=== PATIENT | female | born 1955 | race African-American/Black ===

== ENCOUNTER 2016-07-22 16:06 | Emergency (ER) | payer MEDICARE, MEDICAID ==
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
[2016-07-22] MEDS ORDERED: KETOROLAC TROMETHAMINE 60 MG/2 ML SDV IM ONE (18:08)
--- NOTE | 2016-07-22 18:13 | ER Document Report ---
ED General - General Chief Complaint: Ankle Pain Stated Complaint: ANKLE PAIN TRAVEL OUTSIDE OF THE [place] IN LAST 30 DAYS: No - HPI Onset: Just prior to arrival Onset/Duration: Sudden - This 61-year-old female who is currently under the care of an orthopedist for an ankle fracture who fell sustaining pain to the mid tibia region - Related Data Allergies/Adverse Reactions: codeine Allergy (Verified 07/22/16 16:54) morphine Allergy (Verified 07/22/16 16:54) Sulfa (Sulfonamide Antibiotics) Allergy (Verified 07/22/16 16:54) Past Medical History - General Information source: Patient - Social History Smoking Status: Never Smoker Chew tobacco use (# tins/day): No Frequency of alcohol use: None Drug Abuse: None Family History: None Patient has suicidal ideation: No Patient has homicidal ideation: No Renal/ Medical History: Denies: Hx Peritoneal Dialysis Review of Systems - Review of Systems Constitutional: No symptoms reported EENT: No symptoms reported Cardiovascular: No symptoms reported Respiratory: No symptoms reported Gastrointestinal: No symptoms reported Genitourinary: No symptoms reported Female Genitourinary: No symptoms reported Musculoskeletal: No symptoms reported Skin: No symptoms reported Hematologic/Lymphatic: No symptoms reported Neurological/Psychological: No symptoms reported Physical Exam - Vital signs Vitals: Temp Pulse Resp BP Pulse Ox 98.2 F 95 16 127/80 H 100 07/22/16 16:54 07/22/16 16:54 07/22/16 16:54 07/22/16 16:54 07/22/16 16:54 Interpretation: Normal - General General appearance: Appears well, Alert - HEENT Head: Normocephalic, Atraumatic Eyes: Normal Pupils: PERRL - Respiratory Respiratory status: No respiratory distress Chest status: Nontender Breath sounds: Normal Chest palpation: Normal - Cardiovascular Rhythm: Regular Heart sounds: Normal auscultation Murmur: No - Abdominal Inspection: Normal Distension: No distension Bowel sounds: Normal Tenderness: Nontender Organomegaly: No organomegaly - Back Back: Normal, Nontender - Extremities General upper extremity: Normal inspection, Nontender, Normal color, Normal ROM , Normal temperature General lower extremity: Normal inspection, Nontender, Normal color, Normal ROM , Normal temperature, Normal weight bearing. No: Shaun's sign Calf: Other - Prior splint in place to right lower extremity pain is underneath that affected area there is no bleeding - Neurological Neuro grossly intact: Yes Cognition: Normal Orientation: AAOx4 [place] Coma Scale Eye Opening: Spontaneous Alex Coma Scale Verbal: Oriented Alex Coma Scale Motor: Obeys Commands [place] Coma Scale Total: 15 Speech: Normal Motor strength normal: LUE, RUE, LLE, RLE Sensory: Normal - Psychological Associated symptoms: Normal affect, Normal mood - Skin Skin Temperature: Warm Skin Moisture: Dry Skin Color: Normal Course - Vital Signs Vital signs: Temp Pulse Resp BP Pulse Ox 98.2 F 95 16 127/80 H 100 07/22/16 16:54 07/22/16 16:54 07/22/16 16:54 07/22/16 16:54 07/22/16 16:54 - Diagnostic Test Radiology reviewed: Reports reviewed Discharge - Discharge Clinical Impression: Right leg pain Disposition: HOME, SELF-CARE Prescriptions: Hydrocodone/Acetaminophen [Sullivan 5-325 Tablet] 1 each PO Q4 PRN #20 tablet PRN Reason:
[2016-07-22 18:21] VITALS: BP 133/80
== END 2016-07-22 18:43 | disposition home or self-care (01) ==
LOC: ER 16:06
DX: M25.579 Pain in unspecified ankle and joints of unspecified foot (principal); S82.899D Other fracture of unspecified lower leg, subsequent encounter for closed fracture with routine healing; X58.XXXD Exposure to other specified factors, subsequent encounter
CPT/HCPCS: 99283; 96372; 73610; J1885

== ENCOUNTER 2016-09-20 06:12 | Emergency (ER) | payer MEDICARE, MEDICAID ==
--- NOTE | 2016-09-20 06:37 | ER Document Report ---
ED Medical Screen (RME) - General Chief Complaint: Fall Stated Complaint: FALL/BACK Notes: Patient is a 61-year-old female that comes emergency department by EMS on C- spine and backboard for chief complaint of fall. She states she fell out of her bed when she was reaching for a phone cord, states she landed on her back, states she hit her head and states that she passed out and then awoke on the floor after a brief period. She states she hurts in her neck, mid and lower back, hips, foot where she has had a cast placed after surgery, and right shoulder. She denies chest pain, abdominal pain, blood thinner use. TRAVEL OUTSIDE OF THE [place] IN LAST 30 DAYS: No - Related Data Allergies/Adverse Reactions: codeine Allergy (Verified 07/22/16 16:54) morphine Allergy (Verified 07/22/16 16:54) Sulfa (Sulfonamide Antibiotics) Allergy (Verified 07/22/16 16:54) Past Medical History Renal/ Medical History: Denies: Hx Peritoneal Dialysis Physical Exam - General General appearance: Alert In distress: None - Back Back: Tender - Tender all down the back on examination with C-spine logroll; normal distal neurovascular exam of all extremities - Extremities General upper extremity: Other - Tender with gentle palpation over the right shoulder and proximal humerus, otherwise unremarkable General lower extremity: Other - Complains with palpation over both hips
[2016-09-20] MEDS ORDERED: HYDROMORPHONE HCL INJ/PF 2 MG/ML AMPULE IM ONE (07:56)
[2016-09-20] MEDS ORDERED: HYDROCODONE/ACETAMINOPHEN 7.5-325 MG TABLET PO ONE (08:01)
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
[2016-09-20 08:13] VITALS: BP 137/82
== END 2016-09-20 08:41 | disposition home or self-care (01) ==
LOC: ER 06:12
DX: M54.2 Cervicalgia (principal); M54.89 Other dorsalgia; M54.5 Low back pain; M25.552 Pain in left hip; M25.551 Pain in right hip; M25.511 Pain in right shoulder; W06.XXXA Fall from bed, initial encounter; Z88.6 Allergy status to analgesic agent; Z88.2 Allergy status to sulfonamides; Z90.710 Acquired absence of both cervix and uterus
CPT/HCPCS: 99284; 73610; 72110; 73522; 73030; 72070; 70450; 72125; A9270

== ENCOUNTER → 2016-10-18 | Outpatient (CLI) | payer MEDICARE | LOC: WI 10:02 | PROVIDERS: ATTEND Internal Medicine | DX: Z12.31 Encounter for screening mammogram for malignant neoplasm of breast (principal) | CPT/HCPCS: 77067; G0202 ==

== ENCOUNTER → 2016-10-21 | Outpatient (CLI) | payer MEDICARE | LOC: RAD 09:41 | PROVIDERS: ATTEND Orthopaedic Surgery | DX: M48.02 Spinal stenosis, cervical region (principal); M48.06 Spinal stenosis, lumbar region | CPT/HCPCS: 72141; 72148 ==

== ENCOUNTER 2017-06-17 11:32 | Emergency (ER) | payer MEDICARE, MEDICAID ==
[2017-06-17 11:38] VITALS: BP 140/82
--- NOTE | 2017-06-17 12:03 | RADIOLOGY REPORT (SQ) ---
EXAM DESCRIPTION: CT HEAD WITHOUT COMPLETED DATE/TIME: 06/17/2017 11:55 am REASON FOR STUDY: stroke like symptoms COMPARISON: 09/20/2016 TECHNIQUE: Axial images acquired through the brain without intravenous contrast. Images reviewed wi th bone, brain and subdural windows. Images stored on PACS. All CT scanners at this facility use dose modulation, iterative reconstruction, and/or weight based d osing when appropriate to reduce radiation dose to as low as reasonably achievable (ALARA). [facility]: Dose Right [facility]: CareDose [facility]: Dose Right [facility]: Teradose 4D [facility]: SocialPandas RADIATION DOSE: CT Rad equipment meets quality standard of care and radiation dose reduction techniq ues were employed. CTDIvol: 49.0 mGy. DLP: 783 mGy-cm. mGy. LIMITATIONS: None. FINDINGS: VENTRICLES: Normal size and contour. CEREBRUM: No masses. No hemorrhage. No midline shift. No evidence for acute infarction. Normal gra y/white matter differentiation. No areas of low density in the white matter. CEREBELLUM: No masses. No hemorrhage. No alteration of density. No evidence for acute infarction. EXTRAAXIAL SPACES: No fluid collections. No masses. ORBITS AND GLOBE: No intra- or extraconal masses. Normal contour of globe without masses. CALVARIUM: No fracture. PARANASAL SINUSES: No fluid or mucosal thickening. SOFT TISSUES: No mass or hematoma. OTHER: No other significant finding. IMPRESSION: NORMAL BRAIN CT WITHOUT CONTRAST. EVIDENCE OF ACUTE STROKE: NO. COMMENT: Quality ID # [id number]: Final reports with documentation of one or more dose reduction techniques (e.g., Automated exposure control, adjustment of the mA and/or kV according to patient size, use of iterative reconstruction technique) TECHNICAL DOCUMENTATION: JOB ID: [id number] [employer]- All Rights Reserved
[2017-06-17] MEDS ORDERED: LORAZEPAM INJ 2 MG/1 ML VIAL IV ONE (12:26)
--- NOTE | 2017-06-17 12:32 | ER Document Report ---
ED General - General Chief Complaint: S/S of Possible Stroke Stated Complaint: CHEST PAIN Time Seen by Provider: 06/17/17 12:25 Mode of Arrival: Stretcher Information source: Patient, Emergency Med Personnel TRAVEL OUTSIDE OF THE [place] IN LAST 30 DAYS: No - HPI Notes: 62 years old female with a history of panic attack and anxiety disorder, this morning around 8:00 had slurred speech and felt like left facial numbness and weakness in the left upper limb and lower limb. But came to the ER 4 hours after. She was evaluated at triage. She had similar symptoms before while she was in [place]. Denies any headache denies any nausea vomiting palpitation or diaphoresis. Denies any other constitutional symptoms - Related Data Allergies/Adverse Reactions: codeine Allergy (Verified 06/17/17 11:39) morphine Allergy (Verified 06/17/17 11:39) Sulfa (Sulfonamide Antibiotics) Allergy (Verified 06/17/17 11:39) Past Medical History - Social History Smoking Status: Former Smoker Family History: None Renal/ Medical History: Denies: Hx Peritoneal Dialysis GI Medical History: Reports: Hx Gastroesophageal Reflux Disease Past Surgical History: Reports: Hx Appendectomy, Hx Hysterectomy Review of Systems - Review of Systems Notes: REVIEW OF SYSTEMS: CONSTITUTIONAL : Denies fever, chills, or sweats. Denies recent illness. EENT: Denies eye, ear, throat, or mouth pain or symptoms. Denies nasal or sinus congestion or discharge. Denies throat, tongue, or mouth swelling or difficulty swallowing. CARDIOVASCULAR: Denies chest pain. Denies palpitations or racing or irregular heart beat. Denies ankle edema. RESPIRATORY: Denies cough, cold, or chest congestion. Denies shortness of breath, difficulty breathing, or wheezing. GASTROINTESTINAL: Denies abdominal pain or distention. Denies nausea, vomiting , or diarrhea. Denies blood in vomitus, stools, or per rectum. Denies black, tarry stools. Denies constipation. GENITOURINARY: Denies difficulty urinating, painful urination, burning, frequency, blood in urine, or discharge. FEMALE GENITOURINARY: Denies vaginal bleeding, heavy or abnormal periods, irregular periods. Denies vaginal discharge or odor. MUSCULOSKELETAL: Denies back or neck pain or stiffness. Denies joint pain or swelling. SKIN: Denies rash, lesions or sores. HEMATOLOGIC : Denies easy bruising or bleeding. LYMPHATIC: Denies swollen, enlarged glands. NEUROLOGICAL: Denies confusion or altered mental status. Denies passing out or loss of consciousness. Denies dizziness or lightheadedness. Denies headache. Denies weakness or paralysis or loss of use of either side. Denies problems with gait or speech. Denies sensory loss, numbness, or tingling. Denies seizures. PSYCHIATRIC: Denies anxiety or stress. Denies depression, suicidal ideation, or homicidal ideation. ALL OTHER SYSTEMS REVIEWED AND NEGATIVE. PHYSICAL EXAMINATION: GENERAL: Seems to be having acute panic attack, HEAD: Atraumatic, normocephalic. EYES: Pupils equal round and reactive to light, extraocular movements intact, conjunctiva are normal. ENT: Nares patent, oropharynx clear without exudates. Moist mucous membranes. NECK: Normal range of motion, supple without lymphadenopathy LUNGS: Breath sounds clear to auscultation bilaterally and equal. No wheezes rales or rhonchi. HEART: Regular rate and rhythm without murmurs ABDOMEN: Soft, nontender, nondistended abdomen. No guarding, no rebound. No masses appreciated. Female : deferred Musculoskeletal: slurred speech with no obvious facial weakness noted, no tongue deviation, positive gag reflex. Weakness of the left arm power of 4/5, weakness over the left lower leg with about a 4/5. No pronator drift sensation intact. NEUROLOGICAL: Cranial nerves grossly intact. Normal speech, normal gait. Normal sensory, motor exams PSYCH: Normal mood, normal affect. SKIN: Warm, Dry, normal turgor, no rashes or lesions noted. Dictation was performed using [employer] voice recognition software Physical Exam - Vital signs Vitals: Temp Pulse Resp BP Pulse Ox 98.3 F 103 H 16 140/82 H 97 06/17/17 11:36 06/17/17 11:36 06/17/17 11:36 06/17/17 11:36 06/17/17 11:36 Course - Re-evaluation Re-evalutation: 06/17/17 15:51 Symptoms have improved now she is complaining of generalized body pain. - Vital Signs Vital signs: Temp Pulse Resp BP Pulse Ox 98.3 F 103 H 16 140/82 H 97 06/17/17 11:36 06/17/17 11:36 06/17/17 11:36 06/17/17 11:36 06/17/17 11:36 - Laboratory Result Diagrams: 06/17/17 12:42 06/17/17 12:42 Laboratory results interpreted by me: 06/17/17 06/17/17 12:42 12:42 WBC 12.4 H Absolute Neutrophils 9.0 H Sodium 147.3 H Chloride 112 H Carbon Dioxide 18 L Est GFR (Non-Af Amer) 59 L - Diagnostic Test Radiology results interpreted by me: 06/17/17 15:5 CT of the head was reviewed the report indicates is negative for any acute event. - EKG Interpretation by Me EKG shows normal: Sinus rhythm Rate: Normal Additional EKG results interpreted by me: 06/17/17 15:52 Normal sinus rhythm at a rate of 60 bpm normal axis no acute ST elevation ST depression T-wave inversion noted. Normal cardiogram Discharge - Discharge Clinical Impression: Acute anxiety, Chronic pain syndrome Condition: Good Disposition: HOME, SELF-CARE Instructions: Anxiety ([facility]) Prescriptions: Alprazolam [Xanax 0.5 mg Tablet] 0.5 mg PO QHS #10 tab
--- NOTE | 2017-06-17 12:52 | EKG REPORT ---
SEVERITY:- NORMAL ECG - SINUS RHYTHM : Confirmed by: Daphne Feng 17-Jun-2017 12:52:18
[2017-06-17 12:54] LABS: ABSOLUTE BASOPHILS # (AUTO) 0.1 10^3/uL (0.0-0.2); ABSOLUTE EOSINOPHILS # (AUTO) 0.4 10^3/uL (0.0-0.6); ABSOLUTE MONOCYTES (AUTO) 0.9 10^3/uL (0.1-1.4); EOSINOPHILS % (AUTO) 2.9 % (0-6); HEMOGLOBIN 12.2 g/dL (12.0-15.5); HGB HCT DIFFERENCE -0.4; LYMPHOCYTES % (AUTO) 16.5 % (13-45); MEAN CORPUSCULAR HEMOGLOBIN 31.2 pg (27.0-33.4); MEAN CORPUSCULAR HGB CONC 33.1 g/dL (32.0-36.0); MEAN CORPUSCULAR VOLUME 94 fl (80-97); MONOCYTES % (AUTO) 7.3 % (3-13); RED BLOOD COUNT 3.93 10^6/uL (3.72-5.28); RED CELL DISTRIBUTION WIDTH 12.9 % (11.5-14.0); SEGMENTED NEUTROPHILS % (AUTO) 72.3 % (42-78); WHITE BLOOD COUNT 12.4 10^3/uL (4.0-10.5)
[2017-06-17 13:10] LABS: PROTHROMBIN TIME 13.2 SEC (11.4-15.4)
[2017-06-17 13:11] LABS: PARTIAL THROMBOPLASTIN TIME 28.1 SEC (23.5-35.8)
[2017-06-17 13:15] LABS: ANION GAP 17 (5-19); BLOOD UREA NITROGEN 12 mg/dL (7-20); CALCIUM 9.2 mg/dL (8.4-10.2); CARBON DIOXIDE 18 mmol/L (22-30); CHLORIDE 112 mmol/L (98-107); CREATININE RESULT 0.97 mg/dL (0.52-1.25); GLUCOSE 104 mg/dL (75-110); POTASSIUM 3.9 mmol/L (3.6-5.0); SODIUM 147.3 mmol/L (137-145)
[2017-06-17] MEDS ORDERED: KETOROLAC TROMETHAMINE INJ/PF 30 MG/1 ML SDV IV ONE (15:52)
== END 2017-06-17 16:00 | disposition home or self-care (01) ==
LOC: ER 11:32
DX: F41.9 Anxiety disorder, unspecified (principal); G89.4 Chronic pain syndrome; Z88.6 Allergy status to analgesic agent; Z88.2 Allergy status to sulfonamides; Z90.710 Acquired absence of both cervix and uterus
CPT/HCPCS: 93005; 99284; 96374; 36415; 85025; 85610; 85730; 80048; 70450; 93010; J2060

== ENCOUNTER 2017-08-06 11:36 | Emergency (ER) | payer OTHER, MEDICAID ==
[2017-08-06] MEDS ORDERED: DEXAMETHASONE SOD PHOS INJ 10 MG/1 ML VIAL IM ONE (12:11)
[2017-08-06] MEDS ORDERED: KETOROLAC TROMETHAMINE 60 MG/2 ML SDV IM ONE (12:11)
[2017-08-06] MEDS ORDERED: LIDOCAINE 5% (700 MG) TRANSDERMAL ADH..PATCH TP ONE (12:12)
--- NOTE | 2017-08-06 12:16 | ER Document Report ---
ED Neck/Back Problem - General Chief Complaint: Back Pain Stated Complaint: BACK PAIN Time Seen by Provider: 08/06/17 12:02 Mode of Arrival: Ambulatory Information source: Patient Notes: 62-year-old female presents to ED for chronic back pain for years. She states she is also had chronic right foot and ankle pain but it is much worse the back pain and the ankle pain. She states she thinks she twisted her ankle yesterday. She states she had a MRI to the back 3 months ago and when she went to her chronic pain appointment yesterday he would not see her because she did not have the MRI results with her. She states she normally gets hydrocodone 04/12/2025. She states she has a history of "multiple fractures and bulging disc from the head to the tailbone." TRAVEL OUTSIDE OF THE [place] IN LAST 30 DAYS: No - HPI Patient complains to provider of: Pain, Lower back - And right foot and ankle Onset: Other - Chronic worse for the last couple days Onset: Chronic Timing: Waxing and waning Quality of pain: Sharp, Throbbing Severity: Severe Pain Level: 5 Recent injury: Possibly - States she might have twisted her right ankle Associated symptoms: Like prior neck/back pain, Radiation to leg, Lower back pain. denies: Constipation, Fever, Incontinence, Motor loss, Numbness/tingling , Sensory loss, Unable to urinate, Upper back pain Exacerbated by: Movement of trunk Relieved by: Supine Similar symptoms previously: Yes Recently seen / treated by doctor: Yes - Related Data Allergies/Adverse Reactions: codeine Allergy (Verified 06/17/17 11:39) morphine Allergy (Verified 06/17/17 11:39) Sulfa (Sulfonamide Antibiotics) Allergy (Verified 06/17/17 11:39) Past Medical History - General Information source: Patient - Social History Smoking Status: Never Smoker Cigarette use (# per day): No Chew tobacco use (# tins/day): No Smoking Education Provided: No Frequency of alcohol use: None Drug Abuse: None Lives with: Family Family History: Reviewed & Not Pertinent Patient has suicidal ideation: No Patient has homicidal ideation: No - Past Medical History Cardiac Medical History: Reports: None Pulmonary Medical History: Reports: None EENT Medical History: Reports: None Neurological Medical History: Reports: None Endocrine Medical History: Reports: None Renal/ Medical History: Reports: None Malignancy Medical History: Reports: None GI Medical History: Reports: Hx Gastroesophageal Reflux Disease Musculoskeltal Medical History: Reports Hx Arthritis, Reports Hx Musculoskeletal Deformity, Reports Hx Musculoskeletal Trauma Skin Medical History: Reports None Psychiatric Medical History: Reports: None Traumatic Medical History: Reports: Hx Fractures - Right leg 2 right foot, Hx Spine Fracture - Multiple fractures from top to bottom. Denies: Hx Spleen Laceration/Rupture, Hx Traumatic Brain Injury Infectious Medical History: Reports: None Past Surgical History: Reports: Hx Appendectomy, Hx Hysterectomy Review of Systems - Review of Systems Constitutional: No symptoms reported EENT: No symptoms reported Cardiovascular: No symptoms reported Respiratory: No symptoms reported Gastrointestinal: No symptoms reported Genitourinary: No symptoms reported Female Genitourinary: No symptoms reported Musculoskeletal: Back pain, Muscle pain, Muscle stiffness, Ankle swelling Skin: No symptoms reported Hematologic/Lymphatic: No symptoms reported Neurological/Psychological: No symptoms reported -: Yes All other systems reviewed and negative Physical Exam - Vital signs Vitals: Temp Pulse BP Pulse Ox 98.3 F 95 143/87 H 97 08/06/17 11:42 08/06/17 11:42 08/06/17 11:42 08/06/17 11:42 Interpretation: Normal - General General appearance: Appears well, Alert - HEENT Head: Normocephalic, Atraumatic Eyes: Normal Pupils: PERRL - Respiratory Respiratory status: No respiratory distress Chest status: Nontender Breath sounds: Normal Chest palpation: Normal - Cardiovascular Rhythm: Regular Heart sounds: Normal auscultation Murmur: No - Abdominal Inspection: Normal Distension: No distension Bowel sounds: Normal Tenderness: Nontender Organomegaly: No organomegaly - Back Back: Normal, Tender, Vertebra tenderness - Extremities General upper extremity: Normal inspection, Nontender, Normal color, Normal ROM , Normal temperature General lower extremity: Normal color, Normal ROM, Normal temperature, Normal weight bearing. No: Shaun's sign Ankle: Tender - Right, Edema - Right, Limited ROM - Due to pain, Unable to bear weight - Painful to walk on her foot. No: Deformity, Ecchymosis, Instability, Laceration, Positive Corado's test Foot: Tender, Edema - Neurological Neuro grossly intact: Yes Cognition: Normal Orientation: AAOx4 [place] Coma Scale Eye Opening: Spontaneous Alex Coma Scale Verbal: Oriented Alex Coma Scale Motor: Obeys Commands Alex Coma Scale Total: 15 Speech: Normal Motor strength normal: LUE, RUE, LLE, RLE Sensory: Normal - Psychological Associated symptoms: Normal affect, Normal mood - Skin Skin Temperature: Warm Skin Moisture: Dry Skin Color: Normal Course - Re-evaluation Re-evalutation: 08/06/17 13:55 Discussed x-ray results with patient and written reports of x-rays given to patient. Patient was also given written reports and CDs of her MRIs and the x- rays today. There are no acute changes to the foot ankle or the back. Patient was treated with Toradol Decadron in the emergency room as well as a Lidoderm patch to the lower back. I will write her a prescription for some ibuprofen and Lidoderm patches. She is on chronic pain management and will need to follow -up with her chronic pain doctor. - Vital Signs Vital signs: Temp Pulse Resp BP Pulse Ox 97.7 F 88 18 143/90 H 100 08/06/17 14:10 08/06/17 14:10 08/06/17 14:10 08/06/17 14:10 08/06/17 14:10 - Diagnostic Test Radiology reviewed: Image reviewed, Reports reviewed Discharge - Discharge Clinical Impression: Pain, foot, right, chronic, Chronic pain of right ankle Chronic lower back pain Qualifiers: Back pain laterality: bilateral Sciatica presence: with sciatica Sciatica laterality: bilateral sciatica Qualified Code(s): M54.42 - Lumbago with sciatica , left side Condition: Stable Disposition: HOME, SELF-CARE Additional Instructions: Chronic Pain Control Stress, inactivity, and depression make pain more severe regardless of the cause of the pain. Stress and poor physical condition can cause pain such as headaches and backache. Relaxation: Rest in a quiet place with your eyes closed for 20 minutes twice daily. Concentrate on a pleasant image, or simply "feel" your breathing. Clear your mind. Stress management: Deal with your "stressors." Either take action, or eliminate the stressor from your life. Don't let things hang over you. Accept those things you can't change. Nutrition: Eat small, balanced meals -- don't skip, don't overeat. Meals should be high-carbohydrate, low-sugar, low-fat. Exercise: Exercise helps painful conditions and eases stress. Get 30 minutes of moderate exercise, five days a week. Do an activity that does not flare your pain. Precautions: Pain which continues to disrupt daily activities, or which changes in nature, requires a medical evaluation. Pain Clinic referral is available. We do not manage chronic pain in the Emergency Department. We will try to appropriately help you through an acute flare of your chronic painful condition , but for on-going chronic pain that does not improve, you will need to see your private doctor or boat painter. We do not provide repeated medication management of chronic painful conditions. If you wish, we can provide the name of local pain management physicians. Chronic Back Pain Chronic back pain (pain persisting longer than three months) is a common problem. A medical evaluation can look for herniated disc, arthritis, osteoporosis, tumors, and infections. But at least half the time, there's no obvious treatable cause. Anxiety and depression tend to worsen back pain. Ibuprofen or other anti-inflammatory medicine can help. A heating pad, used for 15-20 minutes at a time, can ease pain. For this type of back pain, narcotic medicines should be avoided. Muscle relaxers are rarely helpful unless you're having spasms. Activity is important. Find an aerobic exercise program that your back can tolerate. Too much rest makes back pain worse. Specific back exercises are usually prescribed to strengthen the back and abdominal muscles. Often, a physical therapist can help. Avoid heavy lifting, working while bent over, or standing with both knees straight. Most back pain patients do better with a firm mattress. If new symptoms of a "herniated disc" (radiation of pain, numbness, or tingling down the back of the leg or weakness in the leg) occur, you should be re-examined. Toradol Injection You have been given an injection of ketorolac tromethamine (Toradol). This is an excellent, safe drug for pain control. It also has potent antiinflammatory action. You should have significant pain relief within about one hour. Toradol is not addicting and is non-sedating. It does not interfere with driving or work. Call or return if you develop itching, hives, shortness of breath, or rash. STEROID MEDICATION: You have been given an injection of medicine of the cortisone/steroid class. This medication is used to control inflammation or allergy. It is often continued as a pill for a short period of time, until the acute process subsides. There are usually no side effects from short-term use of cortisone-like medications. Some persons feel an increased sense of well-being and are not sleepy at bedtime. Long-term use of cortisone medications is best avoided, unless required for a severe condition. If your condition does not remit, or relapses after the course of corticosteroid medication, you should consult your physician. Stretching Exercises for the Back The physician has recommended that you begin stretching exercises for your back. These are often used even while the back is painful. However, you should notify the physician if the activities seem to increase your pain. PELVIC TILT: Lie flat on your back with knees bent. Tighten your stomach and buttock muscles so it flattens your lower back against the floor. Hold 10 seconds. Repeat 10 times, twice daily. KNEE RAISE: Lying on the back with knees bent, raise one knee to your chest, then the other. Hold both knees against the chest 10 seconds, then lower one knee at a time. Repeat 10 times, twice daily. PARTIAL TRUNK RAISE: Lie face down, arms at your sides. Keeping your waist on the floor, use your arms raise your chest up. Support yourself on your elbows for 30 seconds. Repeat twice daily, increasing the time to two minutes as you recover. Ibuprofen Ibuprofen is an excellent, safe drug for pain control. In addition, it has potent antiinflammatory effects which are beneficial, especially in the treatment of injuries, arthritis, or tendonitis. It's best to take ibuprofen with food. Persons with ulcer disease or allergy to aspirin should notify their physician of this before taking ibuprofen. Take the medication exactly as prescribed. Don't take additional doses unless instructed to do so by your doctor. If you develop wheezing, shortness of breath, hives, faintness, stomach pain, vomiting, or dark black stools, return for re-evaluation at once. ICE PACKS: Apply ice packs frequently against the painful area. Many different schedules are recommended, such as "20 minutes on, 20 minutes off" or "one hour ice, two hours rest." If you need to work, you may need to go longer between ice treatments. You should plan to have the area ice packed AT LEAST one fourth of the time. The ice should be applied over the wrap, tape, or splint, or over a layer of cloth -- not directly against the skin. Some ice bags have a built-in cloth and can be put directly on the skin. WARM PACKS: After approximately two days, apply gentle heat (such as a heating pad or hot water bottle) for about 20 to 30 minutes about every two hours -- at least four times daily. Warmth and elevation will help you make a more rapid recovery , and will ease the pain considerably. Do not use HOT heat, and never apply heat for longer than 30 minutes. The continuous heat can invisibly damage skin and muscles -- even when no burn is seen on the surface. Damaged muscles can make you MORE sore. FOLLOW-UP CARE: If you have been referred to a physician for follow-up care, call the physician s office for an appointment as you were instructed or within the next two days. If you experience worsening or a significant change in your symptoms, notify the physician immediately or return to the Emergency Department at any time for re-evaluation. Prescriptions: Ibuprofen 800 mg PO Q8HP PRN #14 tablet PRN Reason: Lidocaine [Lidoderm 5% (700 mg) Transdermal Patch] 1 patch TP DAILY #30 adh..patch Forms: Elevated Blood Pressure Referrals: ENMA HERNDON MD [Primary Care Provider] - Follow up as needed
--- NOTE | 2017-08-06 13:13 | RADIOLOGY REPORT (SQ) ---
EXAM DESCRIPTION: FOOT RIGHT COMPLETE COMPLETED DATE/TIME: 08/06/2017 12:50 pm REASON FOR STUDY: increased pain and swelling to foot and ankle COMPARISON: None. NUMBER OF VIEWS: Three views. TECHNIQUE: AP, lateral and oblique radiographic images acquired of the right foot. LIMITATIONS: None. FINDINGS: MINERALIZATION: Normal. BONES: No acute fracture or dislocation. Mild degenerative changes are noted at the 1st metatarsopha langeal joint. SOFT TISSUES: No soft tissue swelling. No radiopaque foreign body. IMPRESSION: No radiographic evidence of acute injury. TECHNICAL DOCUMENTATION: JOB ID: [id number] 2010 [employer]- All Rights Reserved
--- NOTE | 2017-08-06 13:44 | RADIOLOGY REPORT (SQ) ---
EXAM DESCRIPTION: L SPINE WHOLE COMPLETED DATE/TIME: 08/06/2017 12:50 pm REASON FOR STUDY: increased pain and swelling to low back COMPARISON: 09/20/2016. NUMBER OF VIEWS: Five views including obliques. TECHNIQUE: AP, lateral, oblique, and sacral radiographic images acquired of the lumbar spine. LIMITATIONS: None. FINDINGS: MINERALIZATION: Normal. SEGMENTATION: 5 non rib-bearing lumbar vertebra. ALIGNMENT: Normal. VERTEBRAE/DISCS: Multilevel lumbar spondylosis with degenerative disc disease at L3-4. Minimal degen erative anterolisthesis of L3 on L4 PARASPINAL SOFT TISSUES: Normal. PELVIS: Intact as visualized. No fractures or worrisome bone lesions. SI joints intact. OTHER: No other significant finding. IMPRESSION: Multilevel lumbar spondylosis. Degenerative disc disease at L3-4. No significant inter ellie change. TECHNICAL DOCUMENTATION: JOB ID: [id number] 2010 [employer]- All Rights Reserved
--- NOTE | 2017-08-06 13:50 | RADIOLOGY REPORT (SQ) ---
EXAM DESCRIPTION: ANKLE RIGHT COMPLETE COMPLETED DATE/TIME: 08/06/2017 12:50 pm REASON FOR STUDY: increased pain and swelling to foot and ankle COMPARISON: 07/22/2016. NUMBER OF VIEWS: Three views. TECHNIQUE: AP, lateral, and oblique radiographic images acquired of the right ankle. LIMITATIONS: None. FINDINGS: MINERALIZATION: Normal. BONES: On comparison to the prior study of 07/22/2016 near-complete healing at site of intra-articula r fracture of the medial malleolus. No significant displacement identified. JOINTS: No effusions. SOFT TISSUES: No soft tissue swelling. No foreign body. OTHER: No other significant finding. IMPRESSION: Near-complete healing at site of right medial malleolar fracture. TECHNICAL DOCUMENTATION: JOB ID: [id number] 2010 [employer]- All Rights Reserved
[2017-08-06 14:13] VITALS: BP 143/90
== END 2017-08-06 14:13 | disposition home or self-care (01) ==
LOC: ER 11:36
DX: G89.29 Other chronic pain (principal); M54.42 Lumbago with sciatica, left side; M25.571 Pain in right ankle and joints of right foot; M79.671 Pain in right foot; Z79.891 Long term (current) use of opiate analgesic; Z88.5 Allergy status to narcotic agent; Z88.2 Allergy status to sulfonamides
CPT/HCPCS: 99283; 96372; 73610; 73630; 72110; J1885; J1100

== ENCOUNTER → 2017-09-19 | Outpatient (CLI) | payer MEDICARE, MEDICAID ==
--- NOTE | 2017-09-19 16:37 | RADIOLOGY REPORT (SQ) ---
EXAM DESCRIPTION: MRI LUMBAR SPINE WITHOUT COMPLETED DATE/TIME: 09/19/2017 4:21 pm REASON FOR STUDY: DISPLACEMENT OF LUMBAR INTERVERTEBRAL DISC WITHOUT MYELOPATHY M51.26 OTHER INTERV ERTEBRAL DISC DISPLACEMENT, LUMBAR REGION COMPARISON: 10/21/2016. TECHNIQUE: Sagittal and Axial imaging includes T1, T2, STIR and gradient echo sequences. Coronal T2/ HASTE imaging. LIMITATIONS: None. FINDINGS: VISUALIZED UPPER ABDOMEN: Limited evaluation. No acute or suspicious findings suggested. SEGMENTATION: No transitional anatomy. The lowest well-developed disc space is labeled L5-S1. ALIGNMENT: Mild grade 1 anterolisthesis of L 3 on L4. VERTEBRAE: Intact. BONE MARROW: Normal. No marrow replacement or reactive changes. DISC SIGNAL: Decreased height and signal. POSTERIOR ELEMENTS: Generally intact. No pars defect evident. HARDWARE: None in the spine. CORD AND CONUS: Normal in size and signal intensity. Conus at the appropriate level. SOFT TISSUES: No aortic aneurysm seen. No bulky retroperitoneal adenopathy or mass. No paraspinal mas s or fluid. L1-L2: Mild facet arthropathy. No significant disc bulge. No significant spinal stenosis or exit fo raminal stenosis. L2-L3: [id number] facet arthropathy. No significant disc bulge. No significant spinal stenosi s or exit foraminal stenosis. L3-L4: Mild diffuse posterior bulge. Severe facet arthropathy. Moderate to severe spinal stenosis a nd moderate exit foraminal stenosis. L4-L5: Mild diffuse posterior annular bulge. Moderate to severe facet arthropathy. Mild to moderate spinal stenosis and exit foraminal stenosis. L5-S1: Left paracentral disc herniation. Extruded disc material extending in a cephalad fashion. Le ft lateral recess stenosis with impingement and displacement of the adjacent nerve roots. Mild to mo derate exit foraminal stenosis. LOWER THORACIC: Incompletely imaged. No stenosis seen. SACRUM: Visualized upper sacrum intact. OTHER: No other significant findings. IMPRESSION: MULTILEVEL DEGENERATIVE CHANGES DESCRIBED. SIMILAR APPEARANCE TO THE PRIOR STUDY. TECHNICAL DOCUMENTATION: JOB ID: [id number]- All Rights Reserved Reading location - IP/workstation name: [email or web address]
== END ==
LOC: RAD 14:59
PROVIDERS: ATTEND Orthopaedic Surgery
DX: M51.26 Other intervertebral disc displacement, lumbar region (principal)
CPT/HCPCS: 72148

== ENCOUNTER 2017-11-12 03:53 | Emergency (ER) | payer MEDICARE, MEDICAID ==
[2017-11-12] MEDS ORDERED: HYDRALAZINE HCL 10 MG TABLET PO ONE (05:06)
[2017-11-12] MEDS ORDERED: PREDNISONE 20 MG TABLET PO ONE (05:06)
[2017-11-12] MEDS ORDERED: ONDANSETRON 4 MG TAB.RAPDIS PO ONE (05:06)
[2017-11-12] MEDS ORDERED: PERMETHRIN 1% LOTION 59 ML TP ONE (05:10)
--- NOTE | 2017-11-12 05:11 | ER Document Report ---
ED Skin Rash/Insect Bite/Abscs - General Chief Complaint: Rash Stated Complaint: RASH Time Seen by Provider: 11/12/17 04:59 TRAVEL OUTSIDE OF THE [place] IN LAST 30 DAYS: No - Related Data Allergies/Adverse Reactions: codeine Allergy (Verified 06/17/17 11:39) morphine Allergy (Verified 06/17/17 11:39) Sulfa (Sulfonamide Antibiotics) Allergy (Verified 06/17/17 11:39) Past Medical History - Social History Family History: Reviewed & Not Pertinent Renal/ Medical History: Denies: Hx Peritoneal Dialysis GI Medical History: Reports: Hx Gastroesophageal Reflux Disease Musculoskeltal Medical History: Reports Hx Arthritis, Reports Hx Musculoskeletal Deformity, Reports Hx Musculoskeletal Trauma Traumatic Medical History: Reports: Hx Fractures - Right leg 2 right foot, Hx Spine Fracture - Multiple fractures from top to bottom. Denies: Hx Spleen Laceration/Rupture, Hx Traumatic Brain Injury Past Surgical History: Reports: Hx Appendectomy, Hx Hysterectomy Physical Exam - Vital signs Vitals: Temp Pulse Resp BP Pulse Ox 98.4 F 84 18 190/89 H 98 11/12/17 04:06 11/12/17 04:06 11/12/17 04:06 11/12/17 04:06 11/12/17 04:06 Course - Vital Signs Vital signs: Temp Pulse Resp BP Pulse Ox 98.4 F 84 18 190/89 H 98 11/12/17 04:06 11/12/17 04:06 11/12/17 04:06 11/12/17 04:06 11/12/17 04:06 Discharge - Discharge Clinical Impression: Bug bites Qualifiers: Encounter type: initial encounter Qualified Code(s): W57.XXXA - Bitten or stung by nonvenomous insect and other nonvenomous arthropods, initial encounter HTN (hypertension) Qualifiers: Hypertension type: unspecified Qualified Code(s): I10 - Essential (primary) hypertension Headache Qualifiers: Headache type: unspecified Headache chronicity pattern: unspecified pattern Intractability: not intractable Qualified Code(s): R51 - Headache Condition: Stable Disposition: HOME, SELF-CARE Additional Instructions: Return immediately for any new or worsening symptoms. Follow up with primary care provider, call tomorrow to make followup appointment. Prescriptions: Ondansetron [Zofran Odt 4 mg Tablet] 4 mg PO Q4HP PRN #30 tab.rapdis PRN Reason: Prednisone [Deltasone 20 mg Tablet] 3 tab PO DAILY 5 Days tablet
[2017-11-12] MEDS ORDERED: PERMETHRIN 1% LOTION 59 ML ONE (05:31)
[2017-11-12 06:39] VITALS: BP 153/87
== END 2017-11-12 06:39 | disposition home or self-care (01) ==
LOC: ER 03:53
DX: R21 Rash and other nonspecific skin eruption (principal); W57.XXXA Bitten or stung by nonvenomous insect and other nonvenomous arthropods, initial encounter; I10 Essential (primary) hypertension
CPT/HCPCS: 99282; A9270 ×3; J3490; J7512; S0119

== ENCOUNTER → 2018-10-17 | Outpatient (CLI) | payer MEDICARE, MEDICAID ==
--- NOTE | 2018-10-17 12:50 | RADIOLOGY REPORT (SQ) ---
EXAM DESCRIPTION: HIP LEFT AP/LATERAL COMPLETED DATE/TIME: 10/17/2018 12:02 pm REASON FOR STUDY: PAIN IN LEFT HIP M25.552 PAIN IN LEFT HIP M25.562 PAIN IN LEFT KNEE COMPARISON: 09/20/2016 bilateral hip films NUMBER OF VIEWS: Two views. TECHNIQUE: AP pelvis and additional frog-leg view of the left hip. LIMITATIONS: None. FINDINGS: MINERALIZATION: Normal. LEFT HIP: No fracture or dislocation. No worrisome bone lesions. Joint space is well maintained. N o bony spurring. RIGHT HIP: No fracture or dislocation. No worrisome bone lesions. Joint space is well maintained. No bony spurring. PUBIS AND ISCHIUM: No fracture. PELVIS: No fracture. Small heterotopic ossifications along the right anterior superior iliac spine a re unchanged from 2017. SACRUM: No fracture or dislocation. No worrisome bone lesions. LOWER LUMBAR SPINE: No fracture or dislocation. No worrisome bone lesions. No significant disc disea se. SOFT TISSUES: No findings. OTHER: No other significant finding. IMPRESSION: NEGATIVE STUDY OF THE LEFT HIP AND PELVIS. NO RADIOGRAPHIC EVIDENCE OF ACUTE INJURY. TECHNICAL DOCUMENTATION: JOB ID: [id number]- All Rights Reserved Reading location - IP/workstation name: [email or web address]
--- NOTE | 2018-10-17 12:51 | RADIOLOGY REPORT (SQ) ---
EXAM DESCRIPTION: KNEE LEFT 2 VIEWS COMPLETED DATE/TIME: 10/17/2018 12:02 pm REASON FOR STUDY: PAIN IN LEFT KNEE M25.552 PAIN IN LEFT HIP M25.562 PAIN IN LEFT KNEE COMPARISON: None. NUMBER OF VIEWS: Two views. TECHNIQUE: AP and lateral radiographic images acquired of the left knee. LIMITATIONS: None. FINDINGS: MINERALIZATION: Normal. BONES: No acute fracture or dislocation. No worrisome bone lesions. JOINT: Trace suprapatellar knee joint effusion. Mild patellofemoral and medial compartment joint spa ce narrowing and bony spurring. Minimal chondrocalcinosis SOFT TISSUES: No soft tissue swelling. No radio-opaque foreign body. OTHER: No other significant finding. IMPRESSION: Trace suprapatellar knee joint effusion. Mild patellofemoral and medial compartment celestine nt space narrowing and bony spurring. TECHNICAL DOCUMENTATION: JOB ID: [id number] [employer]- All Rights Reserved Reading location - IP/workstation name: [email or web address]
== END ==
LOC: RAD 11:27
PROVIDERS: ATTEND Internal Medicine
DX: M25.562 Pain in left knee (principal); M25.552 Pain in left hip; M25.462 Effusion, left knee

== ENCOUNTER 2018-11-15 14:27 | Emergency (ER) | payer MEDICARE, MEDICAID ==
[2018-11-15] MEDS ORDERED: KETOROLAC TROMETHAMINE INJ/PF 30 MG/1 ML SDV IV ONE (16:01)
[2018-11-15] MEDS ORDERED: DEXAMETHASONE SOD PHOS INJ 10 MG/1 ML VIAL IV ONE (16:01)
--- NOTE | 2018-11-15 16:03 | ER Document Report ---
ED Medical Screen (RME) - General Chief Complaint: Toe Injury Stated Complaint: LEFT FOOT BIG TOE INJURY Time Seen by Provider: 11/15/18 15:58 Primary Care Provider: ENMA HERNDON MD [Primary Care Provider] - Follow up as needed Mode of Arrival: Ambulatory Information source: Patient Notes: 63-year-old female presents to ED for complaint of pain to left great toe. She states she woke up this morning where it very painful red swollen toe she did not injure her toe. She does not have any history of arthritis or gout. She does not have a history of asthma bronchitis constipation cervical cancer fractured right leg and multiple injuries to her back. She had a hysterectomy due to adhesions and appendectomy. She is alert oriented respirations regular and unlabored speaking in full sentences. Patient has been ordered labs x-ray and pain and steroid medicines. She will be seen by another provider. I have greeted and performed a rapid initial assessment of this patient. A comprehensive ED assessment and evaluation of the patient, analysis of test results and completion of medical decision making process will be conducted by an additional ED providers. TRAVEL OUTSIDE OF THE [place] IN LAST 30 DAYS: No - Related Data Allergies/Adverse Reactions: codeine Allergy (Verified 11/15/18 14:30) morphine Allergy (Verified 11/15/18 14:30) Sulfa (Sulfonamide Antibiotics) Allergy (Verified 11/15/18 14:30) Past Medical History - Social History Chew tobacco use (# tins/day): No Frequency of alcohol use: None Drug Abuse: None - Past Medical History Cardiac Medical History: Reports: Hx Hypertension Pulmonary Medical History: Reports: Hx Asthma, Hx Bronchitis Renal/ Medical History: Denies: Hx Peritoneal Dialysis GI Medical History: Reports: Hx Gastroesophageal Reflux Disease Musculoskeltal Medical History: Reports Hx Arthritis, Reports Hx Musculoskeletal Deformity, Reports Hx Musculoskeletal Trauma Traumatic Medical History: Reports: Hx Fractures - Right leg 2 right foot, Hx Spine Fracture - Multiple fractures from top to bottom. Denies: Hx Spleen Laceration/Rupture, Hx Traumatic Brain Injury Past Surgical History: Reports: Hx Appendectomy, Hx Hysterectomy Physical Exam - Vital signs Vitals: Temp Pulse Resp BP Pulse Ox 99.1 F 94 20 118/78 95 11/15/18 14:35 11/15/18 14:35 11/15/18 14:35 11/15/18 14:35 11/15/18 14:35 Course - Vital Signs Vital signs: Temp Pulse Resp BP Pulse Ox 99.1 F 94 20 118/78 95 11/15/18 14:35 11/15/18 14:35 11/15/18 14:35 11/15/18 14:35 11/15/18 14:35 Doctor's Discharge - Discharge Referrals: ENMA HERNDON MD [Primary Care Provider] - Follow up as needed
[2018-11-15 16:52] LABS: ABSOLUTE BASOPHILS # (AUTO) 0.1 10^3/uL (0.0-0.2); ABSOLUTE EOSINOPHILS # (AUTO) 0.2 10^3/uL (0.0-0.6); ABSOLUTE LYMPHOCYTES (AUTO) 1.9 10^3/uL (0.5-4.7); ABSOLUTE MONOCYTES (AUTO) 0.6 10^3/uL (0.1-1.4); ABSOLUTE NEUT (AUTO) 4.9 10^3/uL (1.7-8.2); BASOPHILS % (AUTO) 1.3 % (0-2); EOSINOPHILS % (AUTO) 2.9 % (0-6); HEMOGLOBIN 12.5 g/dL (12.0-15.5); LYMPHOCYTES % (AUTO) 24.2 % (13-45); MEAN CORPUSCULAR HEMOGLOBIN 31.1 pg (27.0-33.4); MEAN CORPUSCULAR HGB CONC 33.9 g/dL (32.0-36.0); MEAN CORPUSCULAR VOLUME 92 fl (80-97); PLATELET COUNT 381 10^3/uL (150-450); RED BLOOD COUNT 4.02 10^6/uL (3.72-5.28); RED CELL DISTRIBUTION WIDTH 13.2 % (11.5-14.0); SEGMENTED NEUTROPHILS % (AUTO) 63.6 % (42-78); TOTAL CELLS COUNTED % (AUTO) 100 %; WHITE BLOOD COUNT 7.7 10^3/uL (4.0-10.5)
--- NOTE | 2018-11-15 17:09 | RADIOLOGY REPORT (SQ) ---
EXAM DESCRIPTION: TOE LEFT COMPLETED DATE/TIME: 11/15/2018 4:48 pm REASON FOR STUDY: Red swelling painful left great toe COMPARISON: None. NUMBER OF VIEWS: Three views. TECHNIQUE: AP, lateral, and oblique images acquired of the left first toe. LIMITATIONS: None. FINDINGS: MINERALIZATION: Normal. BONES: No acute fracture or dislocation. No worrisome bone lesions. JOINTS: No effusions. There is slight hallux valgus deformity at the 1st metatarsophalangeal joint. No aggressive marginal erosions. SOFT TISSUES: Diffuse great toe soft tissue swelling. No foreign body. OTHER: No other significant finding. IMPRESSION: Soft tissue swelling at the 1st metatarsophalangeal joint without fracture. Findings li james represent gout COMMENT: SITE OF TRAUMA/COMPLAINT MARKED/STAMP COMPLETED: YES. TECHNICAL DOCUMENTATION: JOB ID: [id number] [employer]- All Rights Reserved Reading location - IP/workstation name: [email or web address]
[2018-11-15 17:23] LABS: ALANINE AMINOTRANSFERASE 12 U/L (9-52); ALBUMIN 4.7 g/dL (3.5-5.0); ALKALINE PHOSPHATASE 75 U/L (38-126); ANION GAP 14 (5-19); ASPARTATE AMINO TRANSFERASE 21 U/L (14-36); BILIRUBIN,DIRECT 0.3 mg/dL (0.0-0.4); BILIRUBIN,TOTAL 0.6 mg/dL (0.2-1.3); BLOOD UREA NITROGEN 9 mg/dL (7-20); CALCIUM 10.2 mg/dL (8.4-10.2); CARBON DIOXIDE 23 mmol/L (22-30); CHLORIDE 106 mmol/L (98-107); CREATINE KINASE 112 U/L (30-135); GLUCOSE 94 mg/dL (75-110); POTASSIUM 4.6 mmol/L (3.6-5.0); SODIUM 142.6 mmol/L (137-145); TOTAL PROTEIN 8.7 g/dL (6.3-8.2); URIC ACID 8.4 mg/dL (2.5-7.5)
--- NOTE | 2018-11-15 18:51 | ER Document Report ---
ED General - General Chief Complaint: Toe Injury Stated Complaint: LEFT FOOT BIG TOE INJURY Time Seen by Provider: 11/15/18 15:58 Primary Care Provider: ENMA HERNDON MD [Primary Care Provider] - Follow up as needed Mode of Arrival: Ambulatory Information source: Patient Notes: This is a 63-year-old female with a history of arthritis who presents to the ER with great toe pain for the last several days. Patient states the pain started coming on slowly. She does have redness and some swelling about that base of the big toe. She denies any fever or recent illnesses. She states is very sent sensitive even touching the skin is very sensitive. TRAVEL OUTSIDE OF THE [place] IN LAST 30 DAYS: No - HPI Onset: Last week Onset/Duration: Gradual Quality of pain: Dull Severity: Moderate Pain Level: 2 Associated symptoms: denies: Chest pain, Fever, Shortness of breath Exacerbated by: Movement Relieved by: Remaining still Similar symptoms previously: No Recently seen / treated by doctor: No - Related Data Allergies/Adverse Reactions: codeine Allergy (Verified 11/15/18 14:30) morphine Allergy (Verified 11/15/18 14:30) Sulfa (Sulfonamide Antibiotics) Allergy (Verified 11/15/18 14:30) Past Medical History - General Information source: Patient - Social History Smoking Status: Never Smoker Cigarette use (# per day): No Chew tobacco use (# tins/day): No Frequency of alcohol use: None Drug Abuse: None Lives with: Family Family History: Reviewed & Not Pertinent Patient has suicidal ideation: No Patient has homicidal ideation: No - Past Medical History Cardiac Medical History: Reports: Hx Hypertension Pulmonary Medical History: Reports: Hx Asthma, Hx Bronchitis Renal/ Medical History: Denies: Hx Peritoneal Dialysis GI Medical History: Reports: Hx Gastroesophageal Reflux Disease Musculoskeletal Medical History: Reports Hx Arthritis, Reports Hx Musculoskeletal Deformity, Reports Hx Musculoskeletal Trauma Traumatic Medical History: Reports: Hx Fractures - Right leg 2 right foot, Hx Spine Fracture - Multiple fractures from top to bottom. Denies: Hx Spleen Laceration/Rupture, Hx Traumatic Brain Injury Past Surgical History: Reports: Hx Appendectomy, Hx Hysterectomy Review of Systems - Review of Systems Constitutional: denies: Chills, Fever EENT: No symptoms reported Cardiovascular: No symptoms reported Respiratory: No symptoms reported Gastrointestinal: No symptoms reported Genitourinary: No symptoms reported Female Genitourinary: No symptoms reported Musculoskeletal: See HPI Skin: See HPI Physical Exam - Vital signs Vitals: Temp Pulse Resp BP Pulse Ox 99.1 F 94 20 118/78 95 11/15/18 14:35 11/15/18 14:35 11/15/18 14:35 11/15/18 14:35 11/15/18 14:35 Notes: Physical exam: GENERAL: 63-year-old female, alert and oriented x3, no acute distress HEAD: Atraumatic, normocephalic. EYES: Pupils equal round and reactive to light, extraocular movements intact, sclera anicteric, conjunctiva are normal. ENT: TMs normal, nares patent, oropharynx clear without exudates. Moist mucous membranes. NECK: Normal range of motion, supple without obvious mass or JVD. LUNGS: Breath sounds clear to auscultation bilaterally and equal. No wheezes rales or rhonchi. HEART: Regular rate and rhythm without murmurs, rubs or gallops. ABDOMEN: Soft, normoactive bowel sounds. No tenderness to palpation. No guarding, no rebound. No masses appreciated. EXTREMITIES: Left toe has good cap refill. She does have erythema and swelling at the metatarsal phalangeal joint of the great toe. There is no evidence of cellulitis or abscess. Does appear to be gout clinically. NEUROLOGICAL: Cranial nerves II through XII grossly intact. Normal speech, moving all extremities. PSYCH: Normal mood, normal affect. SKIN: Warm, Dry, normal turgor, no rashes or lesions noted. Course - Vital Signs Vital signs: Temp Pulse Resp BP Pulse Ox 98.2 F 87 18 131/77 H 95 11/15/18 19:16 11/15/18 19:16 11/15/18 19:16 11/15/18 19:16 11/15/18 19:16 - Laboratory Result Diagrams: 11/15/18 16:26 11/15/18 16:26 Laboratory results interpreted by me: 11/15/18 16:26 Est GFR (Non-Af Amer) 58 L Uric Acid 8.4 H Total Protein 8.7 H Discharge - Discharge Clinical Impression: Podagra, Gout Condition: Stable Disposition: HOME, SELF-CARE Additional Instructions: You were given steroids in the emergency room. Take the Medrol Dosepak as prescribed: Start tomorrow Take the Leola for pain. Follow-up with Dr. Herndon in the office tomorrow so that he can follow you. Return to the emergency room for fever (temperature greater than 100.5) or increasing pain or any concerns or getting worse. The pain medicine you're taking prescribed as a narcotic. There are several important things you should know about this medicine: 1. This medicine contains Tylenol: It is important that you do not take Tylenol (or acetaminophen) while on this medicine. Tylenol is metabolized by the liver and taking too much Tylenol (acetaminophen) can lay to liver damage and even liver failure. 2. Taking narcotics for too long can lead to physical and mental dependence. Take this medicine only if really needed and in the lowest quantity to achieve pain relief. 3. Do not drink alcohol while on this medicine. Alcohol interacts with na rcotics and the combination can be dangerous. 4. Do not drive or operate machinery while on this medicine. 5. Narcotics do cause constipation, so drink plenty of fluids and daily stool softeners. Prescriptions: Hydrocodone/Acetaminophen [Leola 5-325 Tablet] 1 each PO Q6HP PRN #20 tablet PRN Reason: Methylprednisolone [Medrol 4 mg Dosepack 21 Tab/Pack] 4 mg PO ASDIR PRN #21 tab.ds.pk PRN Reason: Referrals: ENMA HERNDON MD [Primary Care Provider] - Follow up tomorrow
[2018-11-15 19:21] VITALS: BP 131/77
== END 2018-11-15 19:21 | disposition home or self-care (01) ==
LOC: ER 14:27
DX: M10.9 Gout, unspecified (principal); I10 Essential (primary) hypertension; J45.909 Unspecified asthma, uncomplicated; Z88.5 Allergy status to narcotic agent; Z88.2 Allergy status to sulfonamides
CPT/HCPCS: 99283; 96374; 96375; 36415; 82550; 84550; 85025; 80053; 73660; J1885; J1100

== ENCOUNTER 2019-01-04 16:13 | Inpatient (IN) | payer MEDICARE, MEDICAID ==
--- NOTE | 2019-01-04 19:57 | RADIOLOGY REPORT (SQ) ---
EXAM DESCRIPTION: MRI ABDOMEN WITHOUT COMPLETED DATE/TIME: 01/04/2019 6:26 pm REASON FOR STUDY: MRCP please, Epigastric pain. NPO since last nigh COMPARISON: Right upper quadrant ultrasound 01/04/2019 TECHNIQUE: Noncontrast MRCP. Source and MIP images reviewed. LIMITATIONS: None. FINDINGS: GALLBLADDER: Hydropic. INTRAHEPATIC DUCTS: Nondilated. EXTRAHEPATIC DUCTS: The common bile duct is again noted to be dilated common measuring on the order o f 13 mm in greatest orthogonal dimension. This tapers to normal at the level of the ampulla without evidence of obstructing lesion or mass. PANCREAS: Generally homogeneous, no gross mass or significant signal alteration. No surrounding infl ammatory changes or fluid. Pancreatic duct is normal. LIVER, SPLEEN, KIDNEYS, ADRENALS: No significant abnormality. VESSELS: No evidence of aneurysm. Grossly appropriate flow voids in the major vascular structures. LUNG BASES: Grossly clear. OTHER: No other significant finding. IMPRESSION: Re- demonstration of a hydropic gallbladder with dilated cystic duct which tapers to nor mal at the level of the ampulla without obstructing intraluminal lesion or external mass-effect. TECHNICAL DOCUMENTATION: JOB ID: [id number] [employer]- All Rights Reserved Reading location - IP/workstation name: [email or web address]
[2019-01-04] MEDS: HYDROMORPHONE HCL INJ/PF 2 MG/ML AMPULE IV PRN (19:59)
--- NOTE | 2019-01-04 21:03 | PDOC H&P ---
History of Present Illness Admission Date/PCP: 01/04/19 16:13 ENMA HERNDON MD History of Present Illness: CLAUDIA ALEXANDER is a 63 year old female,She came to the office today for evaluation of epigastric pain, a stat ultrasound of the upper abdomen was done, demonstrated distended gallbladder, distended common bile duct without intrahepatic Biliary ductal dilatation ,distal ductal stone or stricture was suspected, MRCP was recommended and obtained , MRCP demonstrated distended gallbladder dilated common bile duct that tapers to normal without intraluminal lesion or extraluminal lesion.She is very symptomatic, the liver enzymes are elevated Past Medical History Cardiac Medical History: Reports: Hypertension Pulmonary Medical History: Reports: Asthma, Bronchitis GI Medical History: Reports: Gastroesophageal Reflux Disease Musculoskeltal Medical History: Reports: Arthritis Traumatic Medical History: Denies: Traumatic Brain Injury Past Surgical History Past Surgical History: Reports: Appendectomy, Hysterectomy Social History Smoking Status: Never Smoker Frequency of Alcohol Use: None Hx Recreational Drug Use: No Drugs: None Hx Prescription Drug Abuse: No Family History Family History: Reviewed & Not Pertinent Parental Family History Reviewed: Yes Children Family History Reviewed: Yes Sibling(s) Family History Reviewed.: Yes Medication/Allergy Home Medications: Cyanocobalamin (Vitamin B-12) [Vitamin B-12 Inj 1000 Mcg/1 ml Vial] 1,000 mcg IM FR@1000 01/04/19 Cyclobenzaprine HCl [Flexeril 10 mg Tablet] 10 mg PO TID 01/04/19 Gabapentin [Neurontin] 800 mg PO Q8 01/04/19 Topiramate [Topamax] 200 mg PO Q8 01/04/19 Allergies/Adverse Reactions: codeine Allergy (Verified 11/15/18 14:30) morphine Allergy (Verified 11/15/18 14:30) Sulfa (Sulfonamide Antibiotics) Allergy (Verified 11/15/18 14:30) Review of Systems Constitutional: ABSENT: chills, fever(s), headache(s), weight gain, weight loss Eyes: ABSENT: visual disturbances Ears: ABSENT: hearing changes Cardiovascular: ABSENT: chest pain, dyspnea on exertion, edema, orthropnea, palpitations Respiratory: ABSENT: cough, hemoptysis Gastrointestinal: PRESENT: abdominal pain Genitourinary: ABSENT: dysuria, hematuria Musculoskeletal: ABSENT: joint swelling Integumentary: ABSENT: rash, wounds Neurological: ABSENT: abnormal gait, abnormal speech, confusion, dizziness, focal weakness, syncope Psychiatric: ABSENT: anxiety, depression, homidical ideation, suicidal ideation Endocrine: ABSENT: cold intolerance, heat intolerance, menstrual abnormalities, polydipsia, polyuria Hematologic/Lymphatic: ABSENT: easy bleeding, easy bruising, lymphadenopathy Physical Exam Vital Signs: Temp Pulse Resp BP Pulse Ox 99 F 78 18 111/56 L 99 01/04/19 18:21 01/04/19 18:21 01/04/19 18:21 01/04/19 18:21 01/04/19 18:21 Intake & Output 01/03/19 01/04/19 01/05/19 06:59 06:59 06:59 Weight 85.9 kg General appearance: PRESENT: no acute distress, well-developed, well-nourished Head exam: PRESENT: atraumatic, normocephalic Eye exam: PRESENT: conjunctiva pink, EOMI, PERRLA. ABSENT: scleral icterus Ear exam: PRESENT: normal external ear exam Mouth exam: PRESENT: moist, tongue midline Neck exam: PRESENT: full ROM Respiratory exam: PRESENT: clear to auscultation rodolfo Cardiovascular exam: PRESENT: RRR, +S1, +S2 Pulses: PRESENT: normal dorsalis pedis pul, +2 pedal pulses bilateral Vascular exam: PRESENT: normal capillary refill GI/Abdominal exam: PRESENT: normal bowel sounds, soft Rectal exam: PRESENT: deferred Neurological exam: PRESENT: alert, awake, oriented to person, oriented to place, oriented to time, oriented to situation, CN II-XII grossly intact Psychiatric exam: PRESENT: appropriate affect, normal mood Skin exam: PRESENT: dry, intact, warm Results Impressions: Abdomen MRI 01/04/19 00:00 IMPRESSION: Re- demonstration of a hydropic gallbladder with dilated cystic duct which tapers to normal at the level of the ampulla without obstructing intraluminal lesion or external mass-effect. Assessment & Plan - Diagnosis (1) Common bile duct dilatation Is this a current diagnosis for this admission?: Yes Plan: She has common bile duct dilatation without any obvious stone or lesion, there is also dilated gallbladder. The HIDA scan did not demonstrate cholecystitis, patient is asymptomatic very tender with elevated liver enzymes, consultation will be requested from surgery
[2019-01-05] MEDS: HYDROMORPHONE HCL INJ/PF 2 MG/ML AMPULE IV PRN ×3 (03:02→20:44)
--- NOTE | 2019-01-05 08:06 | RADIOLOGY REPORT (SQ) ---
EXAM DESCRIPTION: CHEST SINGLE VIEW COMPLETED DATE/TIME: 01/04/2019 8:44 pm REASON FOR STUDY: Epigastric pain/admission COMPARISON: None. EXAM PARAMETERS: NUMBER OF VIEWS: One view. TECHNIQUE: Single frontal radiographic view of the chest acquired. RADIATION DOSE: NA LIMITATIONS: None. FINDINGS: LUNGS AND PLEURA: No opacities, masses or pneumothorax. No pleural effusion. MEDIASTINUM AND HILAR STRUCTURES: No masses. Contour normal. HEART AND VASCULAR STRUCTURES: Heart normal in size. Normal vasculature. BONES: No acute findings. HARDWARE: None in the chest. OTHER: No other significant finding. IMPRESSION: NO ACUTE RADIOGRAPHIC FINDING IN THE CHEST. TECHNICAL DOCUMENTATION: JOB ID: [id number] [employer]- All Rights Reserved Reading location - IP/workstation name: [email or web address]
[2019-01-05] MEDS ORDERED: (PENDING PHARMACY ID) (Topiramate [Topamax] 200 MG) PO SCH (08:30)
[2019-01-05 08:53] LABS: HEMOGLOBIN 11.7 g/dL (12.0-15.5); MEAN CORPUSCULAR HEMOGLOBIN 31.2 pg (27.0-33.4); MEAN CORPUSCULAR HGB CONC 33.4 g/dL (32.0-36.0); MEAN CORPUSCULAR VOLUME 93 fl (80-97); PLATELET COUNT 181 10^3/uL (150-450); RED BLOOD COUNT 3.75 10^6/uL (3.72-5.28); RED CELL DISTRIBUTION WIDTH 14.3 % (11.5-14.0); WHITE BLOOD COUNT 6.7 10^3/uL (4.0-10.5)
[2019-01-05 09:11] LABS: ALANINE AMINOTRANSFERASE 318 U/L (9-52); ALBUMIN 3.7 g/dL (3.5-5.0); ALKALINE PHOSPHATASE 118 U/L (38-126); ANION GAP 7 (5-19); ASPARTATE AMINO TRANSFERASE 208 U/L (14-36); BILIRUBIN,DIRECT 0.4 mg/dL (0.0-0.4); BILIRUBIN,TOTAL 0.6 mg/dL (0.2-1.3); BLOOD UREA NITROGEN 9 mg/dL (7-20); CARBON DIOXIDE 20 mmol/L (22-30); CHLORIDE 112 mmol/L (98-107); GLUCOSE 122 mg/dL (75-110); POTASSIUM 3.8 mmol/L (3.6-5.0); SODIUM 139.1 mmol/L (137-145); TOTAL PROTEIN 6.7 g/dL (6.3-8.2)
[2019-01-05] MEDS ORDERED: CYANOCOBALAMIN (VITAMIN B-12) INJ 1000 MCG/1 ML VIAL IM SCH (10:00)
--- NOTE | 2019-01-05 11:25 | RADIOLOGY REPORT (SQ) ---
EXAM DESCRIPTION: NM HIDA SCAN COMPLETED DATE/TIME: 01/05/2019 11:13 am REASON FOR STUDY: ? acute cholecystitis COMPARISON: None. RADIONUCLIDE AND DOSE: DOSAGE RADIONUCLIDE: 5.35 millicuries Tc99m Mebrofenin. DOSAGE MORPHINE: Not required. The route of agent administration: Intravenous TECHNIQUE: Serial imaging right upper quadrant up to 60 minutes following injection of radionuclide. Patient imaged AP and Right Lateral. LIMITATIONS: None. FINDINGS: LIVER: Normal visualization without areas of photopenia. INTRA-HEPATIC BILE DUCTS: Temporal visualization normal. No dilatation. COMMON BILE DUCT: Normal without dilatation or delayed visualization. GALLBLADDER: Normal visualization. OTHER: No other significant finding. IMPRESSION: NORMAL STUDY WITHOUT CYSTIC OR COMMON DUCT OBSTRUCTION. TECHNICAL DOCUMENTATION: JOB ID: [id number] [employer]- All Rights Reserved Reading location - IP/workstation name: [email or web address]
[2019-01-05] MEDS: GABAPENTIN 400 MG CAPSULE PO SCH ×3 (11:26→21:34)
[2019-01-05] MEDS: TOPIRAMATE 100 MG TABLET PO SCH ×3 (11:27→21:35)
[2019-01-05] MEDS: CYCLOBENZAPRINE HCL 10 MG TABLET PO SCH ×2 (14:10→21:35)
[2019-01-05] MEDS: NORMAL SALINE 1000 ML 1,000 ML IV PRN (14:10)
--- NOTE | 2019-01-05 18:32 | PDOC CONSULTATION ---
Consultation Consult Date: 01/04/19 Provider Consulted: MONSERRAT THEODORE Consult reason:: Epigastric pains History of Present Illness Admission Date/PCP: 01/04/19 16:13 ENMA HERNDON MD Patient complains of: Epigastric pains History of Present Illness: CLAUDIA ALEXANDER is a 63 year old female with epigastric pains past 2 weeks . Seen at [facility] office(Dr Herndon) yesterday and admitted after dilated gallbladder noted on Ultrasound but no stones. Had MRCP which showed no stones in the CBD and no blockage. Had HIDA scan today which was normal but CCK was not done. Claims at times she would have fatty food intolerance. She has been avoiding greazy food. Past Medical History Cardiac Medical History: Reports: Hypertension Pulmonary Medical History: Reports: Asthma, Bronchitis GI Medical History: Reports: Gastroesophageal Reflux Disease Musculoskeltal Medical History: Reports: Arthritis Traumatic Medical History: Denies: Traumatic Brain Injury Past Surgical History Past Surgical History: Reports: Appendectomy, Hysterectomy Social History Smoking Status: Never Smoker Frequency of Alcohol Use: None Hx Recreational Drug Use: No Drugs: None Hx Prescription Drug Abuse: No Family History Family History: Reviewed & Not Pertinent Parental Family History Reviewed: Yes Children Family History Reviewed: No Sibling(s) Family History Reviewed.: No Medication/Allergy Home Medications: Cyclobenzaprine HCl [Flexeril 10 mg Tablet] 10 mg PO TID 01/04/19 Gabapentin [Neurontin] 800 mg PO Q8 01/04/19 RX: Cyanocobalamin (Vitamin B-12) [Vitamin B-12 Inj 1000 Mcg/1 ml Vial] 1,000 mcg IM FR@1000 01/04/19 Topiramate [Topamax] 200 mg PO Q8 01/04/19 Allergies/Adverse Reactions: codeine Allergy (Verified 11/15/18 14:30) morphine Allergy (Verified 11/15/18 14:30) Sulfa (Sulfonamide Antibiotics) Allergy (Verified 11/15/18 14:30) Review of Systems Constitutional: PRESENT: as per HPI, other - denies fever/chills Cardiovascular: PRESENT: other - no chest pains/cough Gastrointestinal: PRESENT: abdominal pain, nausea Psychiatric: PRESENT: anxiety Physical Exam Vital Signs: Temp Pulse Resp BP Pulse Ox 97.9 F 75 18 98/66 L 98 01/05/19 15:17 01/05/19 15:17 01/05/19 15:17 01/05/19 15:17 01/05/19 15:17 Intake & Output 01/04/19 01/05/19 01/06/19 06:59 06:59 06:59 Intake Total 666 Balance 666 Weight 85.9 kg General appearance: PRESENT: mild distress, other - mildly obese Head exam: PRESENT: atraumatic Eye exam: PRESENT: conjunctiva pink Mouth exam: PRESENT: moist Neck exam: PRESENT: full ROM Respiratory exam: PRESENT: clear to auscultation rodolfo Cardiovascular exam: PRESENT: RRR Pulses: PRESENT: normal radial pulses Vascular exam: PRESENT: normal capillary refill GI/Abdominal exam: PRESENT: soft, tenderness - mild epigastric and RUQ Rectal exam: PRESENT: deferred Extremities exam: PRESENT: full ROM Musculoskeletal exam: PRESENT: ambulatory, full ROM Neurological exam: PRESENT: alert, oriented to person, oriented to place, oriented to time, oriented to situation Psychiatric exam: PRESENT: appropriate affect Skin exam: PRESENT: normal color, warm Results Laboratory Results: 01/05/19 08:35 01/05/19 08:35 01/05/19 01/05/19 08:35 08:35 WBC 6.7 RBC 3.75 Hgb 11.7 L Hct 35.0 L MCV 93 MCH 31.2 MCHC 33.4 RDW 14.3 H Plt Count 181 Sodium 139.1 Potassium 3.8 Chloride 112 H Carbon Dioxide 20 L Anion Gap 7 BUN 9 Creatinine 0.77 Est GFR ( Amer) > 60 Est GFR (Non-Af Amer) > 60 Glucose 122 H Calcium 8.0 L Total Bilirubin 0.6 AST 208 H ALT 318 H Alkaline Phosphatase 118 Total Protein 6.7 Albumin 3.7 Impressions: Abdomen MRI 01/04/19 00:00 IMPRESSION: Re- demonstration of a hydropic gallbladder with dilated cystic duct which tapers to normal at the level of the ampulla without obstructing intraluminal lesion or external mass-effect. Chest X-Ray 01/04/19 00:00 IMPRESSION: NO ACUTE RADIOGRAPHIC FINDING IN THE CHEST. Hepatobiliary Scan Nuclear Medicine 01/05/19 06:00 IMPRESSION: NORMAL STUDY WITHOUT CYSTIC OR COMMON DUCT OBSTRUCTION. Assessment & Plan - Diagnosis (1) ABDOMINAL PAINS Is this a current diagnosis for this admission?: Yes (2) mildly elevated LFT's Is this a current diagnosis for this admission?: Yes - Time Time Spent: 30 to 50 Minutes - Inpatient Certification Medical Necessity: Risk of Complication if Not Cared For in Hospital - Plan Summary Plan Summary: Will order repeat HIDA scan with CCK Low fat diet May need EGD
--- NOTE | 2019-01-05 20:55 | PDOC PROGRESS REPORT ---
Subjective Progress Note for:: 01/05/19 Subjective:: Patient was seen by the bedside she continues to express severe abdominal pain, she was seen by the surgeon, the abdomen is very tender on palpation, she continues to require intravenous analgesia Reason For Visit: CHOLEDOCHOLITHIASIS,EPIGASTRIC PAIN Physical Exam Vital Signs: Temp Pulse Resp BP Pulse Ox 98.1 F 76 16 128/68 H 100 01/05/19 19:30 01/05/19 19:30 01/05/19 19:30 01/05/19 19:30 01/05/19 19:30 Intake & Output 01/04/19 01/05/19 01/06/19 06:59 06:59 06:59 Intake Total 666 680 Balance 666 680 Weight 85.9 kg General appearance: PRESENT: no acute distress Eye exam: PRESENT: PERRLA Respiratory exam: PRESENT: clear to auscultation rodolfo Cardiovascular exam: PRESENT: +S1, +S2 GI/Abdominal exam: PRESENT: tenderness Neurological exam: PRESENT: alert, CN II-XII grossly intact Results Laboratory Results: 01/05/19 08:35 01/05/19 08:35 01/05/19 01/05/19 08:35 08:35 WBC 6.7 RBC 3.75 Hgb 11.7 L Hct 35.0 L MCV 93 MCH 31.2 MCHC 33.4 RDW 14.3 H Plt Count 181 Sodium 139.1 Potassium 3.8 Chloride 112 H Carbon Dioxide 20 L Anion Gap 7 BUN 9 Creatinine 0.77 Est GFR ( Amer) > 60 Est GFR (Non-Af Amer) > 60 Glucose 122 H Calcium 8.0 L Total Bilirubin 0.6 AST 208 H ALT 318 H Alkaline Phosphatase 118 Total Protein 6.7 Albumin 3.7 Impressions: Abdomen MRI 01/04/19 00:00 IMPRESSION: Re- demonstration of a hydropic gallbladder with dilated cystic duct which tapers to normal at the level of the ampulla without obstructing intraluminal lesion or external mass-effect. Chest X-Ray 01/04/19 00:00 IMPRESSION: NO ACUTE RADIOGRAPHIC FINDING IN THE CHEST. Hepatobiliary Scan Nuclear Medicine 01/05/19 06:00 IMPRESSION: NORMAL STUDY WITHOUT CYSTIC OR COMMON DUCT OBSTRUCTION. Assessment & Plan - Diagnosis (1) Common bile duct dilatation Is this a current diagnosis for this admission?: Yes Plan: Consultation obtained from surgery
[2019-01-05] MEDS: PANTOPRAZOLE SODIUM 40 MG VIAL IV SCH (21:35)
[2019-01-06] MEDS: CYCLOBENZAPRINE HCL 10 MG TABLET PO SCH ×3 (05:20→21:28)
[2019-01-06] MEDS: NORMAL SALINE 1000 ML 1,000 ML IV PRN ×2 (05:20→21:28)
[2019-01-06] MEDS: GABAPENTIN 400 MG CAPSULE PO SCH ×3 (05:20→21:28)
[2019-01-06] MEDS: TOPIRAMATE 100 MG TABLET PO SCH ×3 (05:20→21:28)
[2019-01-06 06:43] LABS: APPEARANCE,URINE CLOUDY; BILIRUBIN,URINE NEGATIVE (NEGATIVE); GLUCOSE, URINE NEGATIVE (NEGATIVE); KETONES,URINE NEGATIVE (NEGATIVE); LEUKOCYTE ESTERASE,URINE TRACE (NEGATIVE); NITRITE,URINE POSITIVE (NEGATIVE); PROTEIN,URINE 30 mg/dL (NEGATIVE); URINE SPECIFIC GRAVITY 1.014
[2019-01-06 07:08] LABS: COLOR,URINE DARK YELLOW
[2019-01-06] MEDS: PANTOPRAZOLE SODIUM 40 MG VIAL IV SCH ×2 (10:53→21:29)
[2019-01-06] MEDS ORDERED: ONDANSETRON HCL INJ/PF 4 MG/2 ML SDV IV PRN (11:12)
--- NOTE | 2019-01-06 12:44 | PDOC PROGRESS REPORT ---
Subjective Progress Note for:: 01/06/19 Subjective:: Still with epigastric pains Reason For Visit: CHOLEDOCHOLITHIASIS,EPIGASTRIC PAIN Physical Exam Vital Signs: Temp Pulse Resp BP Pulse Ox 99.5 F 82 18 128/77 H 100 01/06/19 09:00 01/06/19 09:00 01/06/19 09:00 01/06/19 09:00 01/06/19 09:00 Intake & Output 01/05/19 01/06/19 01/07/19 06:59 06:59 06:59 Intake Total 666 1880 Output Total 600 Balance 666 1280 Weight 85.9 kg 92.5 kg Exam: abdomen is soft with tenderness subxiphoid. Mild tenderness RUQ Results Laboratory Results: 01/05/19 08:35 01/05/19 08:35 01/06/19 05:33 Urine Color DARK YELLOW Urine Appearance CLOUDY Urine pH 7.0 Ur Specific [place] 1.014 Urine Protein 30 H Urine Glucose (UA) NEGATIVE Urine Ketones NEGATIVE Urine Blood LARGE H Urine Nitrite POSITIVE H Ur Leukocyte Esterase TRACE H Urine WBC (Auto) 28 Urine RBC (Auto) 0 Impressions: Abdomen MRI 01/04/19 00:00 IMPRESSION: Re- demonstration of a hydropic gallbladder with dilated cystic duct which tapers to normal at the level of the ampulla without obstructing intraluminal lesion or external mass-effect. Chest X-Ray 01/04/19 00:00 IMPRESSION: NO ACUTE RADIOGRAPHIC FINDING IN THE CHEST. Hepatobiliary Scan Nuclear Medicine 01/05/19 06:00 IMPRESSION: NORMAL STUDY WITHOUT CYSTIC OR COMMON DUCT OBSTRUCTION. Assessment & Plan - Diagnosis (1) ABDOMINAL PAINS Is this a current diagnosis for this admission?: Yes (2) mildly elevated LFT's Is this a current diagnosis for this admission?: Yes - Time Time Spent with patient: 15-24 minutes - Inpatient Certification Medical Necessity: Need for Pain Control, Need for Surgery - Plan Summary Plan Summary: Will schedule EGD tomorrow with Dr Zaragoza Continue PPI For HIDA with CCK Tuesday
--- NOTE | 2019-01-06 16:26 | PDOC PROGRESS REPORT ---
Subjective Progress Note for:: 01/06/19 Subjective:: Patient was seen by the surgeon, she has gallbladder disease, will require surgery, scheduled for upper endoscopy and then subsequently HIDA scan with CCK Reason For Visit: CHOLEDOCHOLITHIASIS,EPIGASTRIC PAIN Physical Exam Vital Signs: Temp Pulse Resp BP Pulse Ox 99.0 F 90 18 126/71 H 98 01/06/19 11:53 01/06/19 14:00 01/06/19 11:53 01/06/19 11:53 01/06/19 11:53 Intake & Output 01/05/19 01/06/19 01/07/19 06:59 06:59 06:59 Intake Total 666 1880 Output Total 600 Balance 666 1280 Weight 85.9 kg 92.5 kg General appearance: PRESENT: no acute distress Eye exam: PRESENT: PERRLA Respiratory exam: PRESENT: clear to auscultation rodolfo Cardiovascular exam: PRESENT: +S1, +S2 GI/Abdominal exam: PRESENT: tenderness Neurological exam: PRESENT: alert Results Laboratory Results: 01/05/19 08:35 01/05/19 08:35 01/06/19 05:33 Urine Color DARK YELLOW Urine Appearance CLOUDY Urine pH 7.0 Ur Specific [place] 1.014 Urine Protein 30 H Urine Glucose (UA) NEGATIVE Urine Ketones NEGATIVE Urine Blood LARGE H Urine Nitrite POSITIVE H Ur Leukocyte Esterase TRACE H Urine WBC (Auto) 28 Urine RBC (Auto) 0 Impressions: Abdomen MRI 01/04/19 00:00 IMPRESSION: Re- demonstration of a hydropic gallbladder with dilated cystic duct which tapers to normal at the level of the ampulla without obstructing intraluminal lesion or external mass-effect. Chest X-Ray 01/04/19 00:00 IMPRESSION: NO ACUTE RADIOGRAPHIC FINDING IN THE CHEST. Hepatobiliary Scan Nuclear Medicine 01/05/19 06:00 IMPRESSION: NORMAL STUDY WITHOUT CYSTIC OR COMMON DUCT OBSTRUCTION. Assessment & Plan - Diagnosis (1) Common bile duct dilatation Is this a current diagnosis for this admission?: Yes Plan: She continues to have abdominal pain
[2019-01-07 05:10] LABS: HEMATOCRIT 33.3 % (36.0-47.0); HEMOGLOBIN 11.2 g/dL (12.0-15.5); MEAN CORPUSCULAR HEMOGLOBIN 31.4 pg (27.0-33.4); MEAN CORPUSCULAR HGB CONC 33.7 g/dL (32.0-36.0); MEAN CORPUSCULAR VOLUME 93 fl (80-97); PLATELET COUNT 161 10^3/uL (150-450); RED BLOOD COUNT 3.58 10^6/uL (3.72-5.28); RED CELL DISTRIBUTION WIDTH 14.4 % (11.5-14.0); WHITE BLOOD COUNT 7.9 10^3/uL (4.0-10.5)
[2019-01-07 05:25] LABS: BAND NEUTROPHILS % (MANUAL) 2 % (3-5); TOTAL CELLS COUNTED 100
[2019-01-07] MEDS: GABAPENTIN 400 MG CAPSULE PO SCH ×3 (05:25→22:34)
[2019-01-07] MEDS: CYCLOBENZAPRINE HCL 10 MG TABLET PO SCH ×3 (05:25→22:34)
[2019-01-07] MEDS: TOPIRAMATE 100 MG TABLET PO SCH ×3 (05:25→22:34)
[2019-01-07 05:26] LABS: PLATELET COMMENT ADEQUATE
[2019-01-07 05:27] LABS: HYPOCHROMASIA SLIGHT
[2019-01-07 05:30] LABS: ABSOLUTE LYMPHOCYTES# (MANUAL) 2.7 10^3/uL (0.5-4.7); ABSOLUTE MONOCYTES # (MANUAL) 0.6 10^3/uL (0.1-1.4); BASOPHILS % (MANUAL) 1 % (0-2); EOSINOPHILS % (MANUAL) 12 % (0-6); LYMPHOCYTES % (MANUAL) 34 % (13-45); MONOCYTES % (MANUAL) 8 % (3-13); NUCLEATED RED BLOOD CELLS 1 /100 WBC (0); SEGMENTED NEUTROPHILS % (MAN) 43 % (42-78)
[2019-01-07 05:33] LABS: ALANINE AMINOTRANSFERASE 293 U/L (9-52); ALBUMIN 3.2 g/dL (3.5-5.0); ALKALINE PHOSPHATASE 104 U/L (38-126); ANION GAP 8 (5-19); ANISOCYTOSIS SLIGHT; ASPARTATE AMINO TRANSFERASE 232 U/L (14-36); BILIRUBIN,DIRECT 0.3 mg/dL (0.0-0.4); BILIRUBIN,TOTAL 0.6 mg/dL (0.2-1.3); BLOOD UREA NITROGEN 6 mg/dL (7-20); CALCIUM 8.6 mg/dL (8.4-10.2); CARBON DIOXIDE 17 mmol/L (22-30); CHLORIDE 115 mmol/L (98-107); GLUCOSE 108 mg/dL (75-110); LIPASE 61.4 U/L (23-300); POTASSIUM 3.7 mmol/L (3.6-5.0); SODIUM 140.2 mmol/L (137-145); TOTAL PROTEIN 6.1 g/dL (6.3-8.2)
[2019-01-07] MEDS: NORMAL SALINE 1000 ML 1,000 ML IV PRN ×2 (09:33→22:33)
[2019-01-07] MEDS: PANTOPRAZOLE SODIUM 40 MG VIAL IV SCH ×2 (09:33→22:34)
--- NOTE | 2019-01-07 10:37 | PDOC PROGRESS REPORT ---
Subjective Progress Note for:: 01/07/19 Subjective:: She was seen by the bedside, she has elevated liver enzymes but the alkaline phosphatase, the total bilirubin is normal which negate obstructive disease, the ultrasound and MRCP demonstrated distended gallbladder, patient is very symptomatic with abdominal pain, the question is the abdominal pain that she is experiencing from other pathologies like peptic ulcer, she is scheduled for EGD today the elevated liver enzymes who also be from other etiology like hepatitis, if the EGD is negative she may need ERCP to rule out ampulla pathology but the pattern of LFT does not suggest cholestatic disease. Reason For Visit: ABD PAIN Physical Exam Vital Signs: Temp Pulse Resp BP Pulse Ox 100.1 F 93 16 133/83 H 98 01/07/19 07:43 01/07/19 07:43 01/07/19 07:43 01/07/19 07:43 01/07/19 07:43 Intake & Output 01/06/19 01/07/19 01/08/19 06:59 06:59 06:59 Intake Total 1880 1745 1000 Output Total 600 850 Balance 5333 694 5475 Weight 92.5 kg 93.9 kg General appearance: PRESENT: no acute distress Eye exam: PRESENT: PERRLA Respiratory exam: PRESENT: clear to auscultation rodolfo Cardiovascular exam: PRESENT: +S1, +S2 GI/Abdominal exam: PRESENT: soft, tenderness Neurological exam: PRESENT: alert Results Laboratory Results: 01/07/19 04:33 01/07/19 04:33 01/07/19 01/07/19 04:33 04:33 WBC 7.9 RBC 3.58 L Hgb 11.2 L Hct 33.3 L MCV 93 MCH 31.4 MCHC 33.7 RDW 14.4 H Plt Count 161 Seg Neutrophils % Not Reportable Lymphocytes % Not Reportable Monocytes % Not Reportable Eosinophils % Not Reportable Basophils % Not Reportable Absolute Neutrophils Not Reportable Absolute Lymphocytes Not Reportable Absolute Monocytes Not Reportable Absolute Eosinophils Not Reportable Absolute Basophils Not Reportable Sodium 140.2 Potassium 3.7 Chloride 115 H Carbon Dioxide 17 L Anion Gap 8 BUN 6 L Creatinine 0.76 Est GFR ( Amer) > 60 Est GFR (Non-Af Amer) > 60 Glucose 108 Calcium 8.6 Total Bilirubin 0.6 AST 232 H ALT 293 H Alkaline Phosphatase 104 Total Protein 6.1 L Albumin 3.2 L Lipase 61.4 Impressions: Abdomen MRI 01/04/19 00:00 IMPRESSION: Re- demonstration of a hydropic gallbladder with dilated cystic duct which tapers to normal at the level of the ampulla without obstructing intraluminal lesion or external mass-effect. Chest X-Ray 01/04/19 00:00 IMPRESSION: NO ACUTE RADIOGRAPHIC FINDING IN THE CHEST. Hepatobiliary Scan Nuclear Medicine 01/05/19 06:00 IMPRESSION: NORMAL STUDY WITHOUT CYSTIC OR COMMON DUCT OBSTRUCTION. Assessment & Plan - Diagnosis (1) Common bile duct dilatation Is this a current diagnosis for this admission?: Yes (2) Elevated liver enzymes Is this a current diagnosis for this admission?: Yes Plan: The pattern of liver enzymes elevation does not suggest cholestatic disease, hepatitis panel ordered (3) Epigastric pain Is this a current diagnosis for this admission?: Yes Plan: The differential diagnosis is long, it includes peptic ulcer disease, cholecystitis though this is rule out with HIDA scan
[2019-01-07] MEDS ORDERED: NALOXONE HCL INJ/PF 0.4 MG/1 ML SDV ONE (12:48)
[2019-01-07] MEDS ORDERED: ONDANSETRON HCL INJ/PF 4 MG/2 ML SDV ONE (12:48)
[2019-01-07] MEDS ORDERED: DIPHENHYDRAMINE HCL 50 MG/ML VIAL ONE (12:48)
[2019-01-07] MEDS ORDERED: FENTANYL CITRATE INJ/PF 100 MCG/2 ML AMPUL ONE (12:48)
[2019-01-07] MEDS ORDERED: MIDAZOLAM 2 MG/2 ML INJ ONE (12:48)
[2019-01-07] MEDS ORDERED: GLUCAGON,HUMAN RECOMB 1 MG INJ ONE (12:49)
[2019-01-07] MEDS ORDERED: FLUMAZENIL INJ 0.5 MG/5 ML VIAL ONE (12:49)
[2019-01-07] MEDS ORDERED: EPINEPHRINE INJ 1 MG/10 ML DISP.SYRIN ONE (12:49)
--- NOTE | 2019-01-07 14:07 | Operative Report ---
Nonrecallable Operative Report DATE OF SURGERY: 01/07/19 PREOPERATIVE DIAGNOSIS: abdominal pain POSTOPERATIVE DIAGNOSIS: abdominal pain OPERATION: esophagogastroduodenoscopy SURGEON: RUBIA LOCKE ANESTHESIA: Moderate Sedation TISSUE REMOVED OR ALTERED: none COMPLICATIONS: none INTRAOPERATIVE FINDINGS: mild esophageal candidiasis PROCEDURE: see dictation
--- NOTE | 2019-01-07 14:55 | OPERATIVE REPORT E ---
Operative Report NAME: CLAUDIA ALEXANDER : 1955 AGE: 63Y DATE OF SURGERY: 01/07/2019 ROOM: 414 PREOPERATIVE DIAGNOSIS: ABDOMINAL PAIN. POSTOPERATIVE DIAGNOSIS: ABDOMINAL PAIN. OPERATION: ESOPHAGOGASTRODUODENOSCOPY. SURGEON: RUBIA LOCKE M.D. INDICATIONS FOR SURGERY: This is a 63-year-old female who presented with epigastric abdominal pain and a surgical consult was obtained two days ago, 01/05/2019. The patient was admitted on 01/04/2019. She complained of epigastric pain for approximately 2 weeks. Seen at her primary physician's office, Dr. Santana, and admitted with a dilated gallbladder noted on her ultrasound, but no gallstones. She had an MRCP, which showed no stones in the distal common bile duct and no blockage, and a HIDA scan which was essentially normal. The MRCP did show a dilated extrahepatic duct that tapered down to a normal size duct, and there was no evidence of any mass or stones obstructing her bile duct. Because of the persistent epigastric pain, she was scheduled for this procedure. PROCEDURE: The patient was brought to the endoscopy suite, awake, alert, and in stable condition. Placed in left lateral decubitus position and give intravenous Versed and fentanyl. The Olympus gastroscope was passed into the mouth into the posterior oropharynx. It was then traversed down the esophagus through the stomach and into the pylorus. We approached the 2nd portion of the duodenum and evaluated that. There was no evidence of any mucosal lesions in the duodenum, and there was no evidence of any obstruction. As we slowly withdrew the scope, we got a good look at the post pyloric duodenum. That appeared to be normal. The duodenal bulb appeared to be normal. We then withdrew the scope through the pylorus. There was no evidence of any ulceration or erythema. As we slowly withdrew the scope, we visualized the antrum, again seeing the mucosa appeared to be normal. There was bile in the stomach that may be consistent with some mild bile gastritis, but there was no evidence of any erythema of the gastric mucosa. A J-maneuver was performed, and we noted the GE junction from below, and there was no significant or large hiatal hernia. The scope was then straightened out and we slowly traversed the gastroesophageal junction. I did note the patient had mild to moderate mckayla in her distal esophagus. As we slowly withdrew the scope, there was no evidence of any Fall's esophagus. IMPRESSION: ESOPHAGEAL CANDIDIASIS. The patient tolerated the procedure well. We will start her on nystatin swish and swallow. If she has persistent abdominal pain, and because of the MRCP findings, further evaluation should be done with a wool puller and possible ERCP. DICTATING PHYSICIAN: RUBIA LOCKE M.D. [id number] Y#: [id number] ID: [id number] JOB#: [id number] ACCT: [id number] cc:RUBIA LOCKE M.D. >
[2019-01-07] MEDS ORDERED: NYSTATIN 500000 UNIT/5 ML UDCUP PO SCH (18:00)
--- NOTE | 2019-01-07 18:48 | PDOC CONSULTATION ---
Consultation Consult Date: 01/07/19 Provider Consulted: HERBERT LEW History of Present Illness Admission Date/PCP: 01/06/19 15:52 ENMA HERNDON MD History of Present Illness: CLAUDIA ALEXANDER is a 63 year old female Patient was admitted on 01/04/2019 with abdominal pain. According to the patient she has been having the constant epigastric and right upper quadrant pain for the last 2 weeks. The pain is present during the day and also during the nights. She does not sleep well at night. The pain is sometimes increased with food but not always. She did have a few episodes of vomiting at home and once in the hospital. She denies any fever or change in bowel habit. She had similar pain back in 2006 in [place] and again in 2011 in [place]. She was not given a definite diagnosis at that time. On admission her white count was normal at 6.7 with a slightly low hemoglobin of 11.7. Her CBC and LFTs were normal in November of this year. On admission her AST was 208 with ALT of 318 and normal bilirubin of 0.6. On 01/07/2019 her transaminases were still elevated at 232 and 293 with a bilirubin of 0.6. Her lipase was 64. She had an ultrasound on the day of admission that showed a distended gallbladder and dilated common bile duct up to 13 mm. She did not have any gallstones and her gallbladder wall was not thickened. She also had an MRCP on the same day that showed a hydropic gallbladder with dilated common bile ducts. No filling defect was identified. He had a scan was performed on 01/05/2019 that was essentially normal. She then had an EGD today that only showed evidence of esophageal candidiasis. Past Medical History Cardiac Medical History: Reports: Hypertension Pulmonary Medical History: Reports: Asthma, Bronchitis GI Medical History: Reports: Gastroesophageal Reflux Disease Musculoskeltal Medical History: Reports: Arthritis Traumatic Medical History: Denies: Traumatic Brain Injury Past Surgical History Past Surgical History: Reports: Appendectomy, Hysterectomy Social History Smoking Status: Never Smoker Frequency of Alcohol Use: None Hx Recreational Drug Use: No Drugs: None Hx Prescription Drug Abuse: No - Advance Directive Resuscitation Status: Full Code Family History Family History: Reviewed & Not Pertinent Parental Family History Reviewed: No Children Family History Reviewed: NA Sibling(s) Family History Reviewed.: NA Medication/Allergy Home Medications: Cyanocobalamin (Vitamin B-12) [Vitamin B-12 Inj 1000 Mcg/1 ml Vial] 1,000 mcg IM FR@1000 01/04/19 Cyclobenzaprine HCl [Flexeril 10 mg Tablet] 10 mg PO TID 01/04/19 Gabapentin [Neurontin] 800 mg PO Q8 01/04/19 Topiramate [Topamax] 200 mg PO Q8 01/04/19 Allergies/Adverse Reactions: codeine Allergy (Verified 11/15/18 14:30) morphine Allergy (Verified 11/15/18 14:30) Sulfa (Sulfonamide Antibiotics) Allergy (Verified 11/15/18 14:30) Review of Systems All systems: reviewed and no additional remarkable complaints except as stated Physical Exam Vital Signs: Temp Pulse Resp BP Pulse Ox 99.0 F 81 18 137/76 H 100 01/07/19 15:11 01/07/19 15:11 01/07/19 15:11 01/07/19 15:11 01/07/19 15:11 Intake & Output 01/06/19 01/07/19 01/08/19 06:59 06:59 06:59 Intake Total 1880 1745 1680 Output Total 600 850 400 Balance 7374 084 3529 Weight 92.5 kg 93.9 kg Exam: General: Patient is alert and looks well. HEENT: There is no pallor or jaundice. PERRLA. Oropharynx normal Respiratory: No chest deformity. No respiratory distress. Chest wall palpitation was unremarkable. Breath sounds were normal Cardiovascular: Heart sounds 1 and 2 normal with no murmurs. Abdominal: Not distended. Soft with tenderness in the epigastrium and right upper quadrant. There is no guarding or rebound tenderness. Liver and spleen not palpable. No ascites demonstrated. Bowel sounds active. Rectal examination was deferred. Extremities: No edema Neurological: Alert and oriented x4. Grossly nonfocal. Normal speech Skin: No significant rash Psychological: Normal affect Results Laboratory Results: 01/07/19 04:33 01/07/19 04:33 01/07/19 01/07/19 04:33 04:33 WBC 7.9 RBC 3.58 L Hgb 11.2 L Hct 33.3 L MCV 93 MCH 31.4 MCHC 33.7 RDW 14.4 H Plt Count 161 Seg Neutrophils % Not Reportable Lymphocytes % Not Reportable Monocytes % Not Reportable Eosinophils % Not Reportable Basophils % Not Reportable Absolute Neutrophils Not Reportable Absolute Lymphocytes Not Reportable Absolute Monocytes Not Reportable Absolute Eosinophils Not Reportable Absolute Basophils Not Reportable Sodium 140.2 Potassium 3.7 Chloride 115 H Carbon Dioxide 17 L Anion Gap 8 BUN 6 L Creatinine 0.76 Est GFR ( Amer) > 60 Est GFR (Non-Af Amer) > 60 Glucose 108 Calcium 8.6 Total Bilirubin 0.6 AST 232 H ALT 293 H Alkaline Phosphatase 104 Total Protein 6.1 L Albumin 3.2 L Lipase 61.4 Impressions: Abdomen MRI 01/04/19 00:00 IMPRESSION: Re- demonstration of a hydropic gallbladder with dilated cystic duct which tapers to normal at the level of the ampulla without obstructing intraluminal lesion or external mass-effect. Chest X-Ray 01/04/19 00:00 IMPRESSION: NO ACUTE RADIOGRAPHIC FINDING IN THE CHEST. Hepatobiliary Scan Nuclear Medicine 01/05/19 06:00 IMPRESSION: NORMAL STUDY WITHOUT CYSTIC OR COMMON DUCT OBSTRUCTION. Assessment & Plan - Diagnosis (1) Epigastric pain Is this a current diagnosis for this admission?: Yes Plan: She has had constant epigastric pain for the last 2 weeks and the etiology is unclear. The pain does sometimes get worse with eating. She has dilated common bile duct and gallbladder but has a normal HIDA scan and bilirubin which makes clinical biliary obstruction less likely. Her LFTs were normal about 6 weeks ago. I will schedule her for an ERCP tomorrow to definitely rule out biliary obstruction and a sphincterotomy will likely be performed. If this does not relieve her pain I will suggest exploratory laparoscopy with possible cholecystectomy. (2) Common bile duct dilatation Is this a current diagnosis for this admission?: Yes (3) Elevated liver enzymes Is this a current diagnosis for this admission?: Yes (4) Esophageal candidiasis Is this a current diagnosis for this admission?: Yes Plan: I would suggest Diflucan instead of nystatin
[2019-01-08] MEDS: CYCLOBENZAPRINE HCL 10 MG TABLET PO SCH ×3 (05:25→21:38)
[2019-01-08] MEDS: TOPIRAMATE 100 MG TABLET PO SCH ×3 (05:25→21:38)
[2019-01-08] MEDS: GABAPENTIN 400 MG CAPSULE PO SCH ×3 (05:26→21:38)
[2019-01-08] MEDS: PANTOPRAZOLE SODIUM 40 MG VIAL IV SCH (09:13)
[2019-01-08] MEDS: FLUCONAZOLE 100 MG TABLET PO SCH (12:15)
[2019-01-08] MEDS: NORMAL SALINE 1000 ML 1,000 ML IV PRN (14:33)
[2019-01-08] MEDS: HYDROMORPHONE HCL INJ/PF 2 MG/ML AMPULE IV PRN (14:34)
--- NOTE | 2019-01-08 14:50 | RADIOLOGY REPORT (SQ) ---
EXAM DESCRIPTION: NM HIDA SCAN WITH CCK COMPLETED DATE/TIME: 01/08/2019 2:38 pm REASON FOR STUDY: RUQ PAIN COMPARISON: None. RADIONUCLIDE AND DOSE: DOSAGE RADIONUCLIDE: 5.37 millicuries Tc99m Mebrofenin. DOSAGE CCK: 1.7 micrograms. DOSAGE MORPHINE: Not required. The route of agent administration: Intravenous TECHNIQUE: Serial imaging right upper quadrant up to 60 minutes following injection of radionuclide. CCK injected after gallbladder visualized. LIMITATIONS: None. FINDINGS: LIVER: Normal visualization without areas of photopenia. INTRAHEPATIC BILE DUCTS: Normal size and no delay in visualization. COMMON BILE DUCT: Normal without dilatation. GALLBLADDER: Normal visualization. Calculated ejection fraction of 80%. Normal range is greater th an 35%. PHYSICAL RESPONSE: Patients presenting complaint was reproduced. OTHER: No other significant finding. IMPRESSION: NORMAL STUDY WITHOUT CYSTIC OR COMMON DUCT OBSTRUCTION. NORMAL GALLBLADDER EJECTION FRA CTION. NO EVIDENCE FOR BILIARY DYSKINESIS. TECHNICAL DOCUMENTATION: JOB ID: [id number] [employer]- All Rights Reserved Reading location - IP/workstation name: [email or web address]
[2019-01-08] MEDS ORDERED: PROPOFOL INJ 200 MG/20 ML VIAL IV ONE (16:37)
[2019-01-08] MEDS ORDERED: DEXAMETHASONE SOD PHOSPHATE INJ 4 MG/1 ML VIAL ONE (16:37)
[2019-01-08] MEDS ORDERED: MIDAZOLAM 2 MG/2 ML INJ ONE (16:37)
[2019-01-08] MEDS ORDERED: FENTANYL CITRATE INJ/PF 100 MCG/2 ML AMPUL ONE (16:37)
[2019-01-08] MEDS ORDERED: ONDANSETRON HCL INJ/PF 4 MG/2 ML SDV ONE (16:37)
--- NOTE | 2019-01-08 18:50 | PDOC PROGRESS REPORT ---
Subjective Progress Note for:: 01/08/19 Subjective:: Patient was supposed to undergo ERCP, she was very stuporous, the a nesthesiologist was concerned because of the state of drowsiness this is most likely secondary to Dilaudid opiate analgesia that was given to patient for the control of pain Reason For Visit: ABD PAIN Physical Exam Vital Signs: Temp Pulse Resp BP Pulse Ox 98.8 F 99 20 129/66 H 95 01/08/19 17:12 01/08/19 17:12 01/08/19 17:12 01/08/19 17:12 01/08/19 17:12 Intake & Output 01/07/19 01/08/19 01/09/19 06:59 06:59 06:59 Intake Total 1745 3180 1000 Output Total 850 1300 600 Balance 895 1880 400 Weight 93.9 kg 89.6 kg General appearance: PRESENT: no acute distress Eye exam: PRESENT: PERRLA Respiratory exam: PRESENT: clear to auscultation rodolfo Cardiovascular exam: PRESENT: +S1, +S2 GI/Abdominal exam: PRESENT: soft Neurological exam: PRESENT: alert, CN II-XII grossly intact Results Laboratory Results: 01/07/19 04:33 01/07/19 04:33 01/07/19 04:33 WBC 7.9 RBC 3.58 L Hgb 11.2 L Hct 33.3 L MCV 93 MCH 31.4 MCHC 33.7 RDW 14.4 H Plt Count 161 Impressions: Abdomen MRI 01/04/19 00:00 IMPRESSION: Re- demonstration of a hydropic gallbladder with dilated cystic duct which tapers to normal at the level of the ampulla without obstructing intraluminal lesion or external mass-effect. Chest X-Ray 01/04/19 00:00 IMPRESSION: NO ACUTE RADIOGRAPHIC FINDING IN THE CHEST. Hepatobiliary Scan Nuclear Medicine 01/08/19 13:00 IMPRESSION: NORMAL STUDY WITHOUT CYSTIC OR COMMON DUCT OBSTRUCTION. NORMAL GALLBLADDER EJECTION FRACTION. NO EVIDENCE FOR BILIARY DYSKINESIS. Assessment & Plan - Diagnosis (1) Common bile duct dilatation Is this a current diagnosis for this admission?: Yes (2) Elevated liver enzymes Is this a current diagnosis for this admission?: Yes (3) Epigastric pain Is this a current diagnosis for this admission?: Yes - Plan Summary Plan Summary: The procedure was canceled, Dilaudid is discontinued, she is scheduled for tomorrow
--- NOTE | 2019-01-08 22:54 | PDOC PROGRESS REPORT ---
Subjective Progress Note for:: 01/08/19 Subjective:: Still with epigastric pains but becoming less. Reason For Visit: ABD PAIN Physical Exam Vital Signs: Temp Pulse Resp BP Pulse Ox 98.5 F 82 16 116/69 100 01/08/19 20:00 01/08/19 20:00 01/08/19 20:00 01/08/19 20:00 01/08/19 20:00 Intake & Output 01/07/19 01/08/19 01/09/19 06:59 06:59 06:59 Intake Total 1745 3180 1130 Output Total 850 1300 1500 Balance 895 1880 -370 Weight 93.9 kg 89.6 kg Exam: abdomen is soft with mild tenderness epigastric area Results Laboratory Results: 01/07/19 04:33 01/07/19 04:33 Impressions: Abdomen MRI 01/04/19 00:00 IMPRESSION: Re- demonstration of a hydropic gallbladder with dilated cystic duct which tapers to normal at the level of the ampulla without obstructing intraluminal lesion or external mass-effect. Chest X-Ray 01/04/19 00:00 IMPRESSION: NO ACUTE RADIOGRAPHIC FINDING IN THE CHEST. Hepatobiliary Scan Nuclear Medicine 01/08/19 13:00 IMPRESSION: NORMAL STUDY WITHOUT CYSTIC OR COMMON DUCT OBSTRUCTION. NORMAL GALLBLADDER EJECTION FRACTION. NO EVIDENCE FOR BILIARY DYSKINESIS. Assessment & Plan - Diagnosis (1) ABDOMINAL PAINS Is this a current diagnosis for this admission?: Yes (2) mildly elevated LFT's Is this a current diagnosis for this admission?: Yes - Time Time Spent with patient: 15-24 minutes - Plan Summary Plan Summary: Hida scan showed good ejection fraction but reproduced symptoms with CCK stimulation EGD results yesterday was noted Supposed to have ERCP today but very lethargic to obtain consent.Dr Morales cancelled it today Hopefully can have ERCP tomorrow
--- NOTE | 2019-01-09 00:22 | EKG REPORT ---
SEVERITY:- BORDERLINE ECG - SINUS RHYTHM BORDERLINE T ABNORMALITIES, DIFFUSE LEADS : Confirmed by: Daphne Feng 09-Jan-2019 00:22:16
[2019-01-09] MEDS: NORMAL SALINE 1000 ML 1,000 ML IV PRN ×3 (03:12→21:54)
[2019-01-09] MEDS: TOPIRAMATE 100 MG TABLET PO SCH ×3 (08:02→21:54)
[2019-01-09] MEDS: CYCLOBENZAPRINE HCL 10 MG TABLET PO SCH ×3 (08:02→21:54)
[2019-01-09] MEDS: GABAPENTIN 400 MG CAPSULE PO SCH ×3 (08:02→21:55)
[2019-01-09 08:39] LABS: HEPATITIS A AB IGM Negative (Negative); HEPATITIS B CORE AB IGM Negative (Negative); HEPATITS B SURFACE ANTIGEN Negative (Negative)
[2019-01-09 08:51] LABS: HEPATITIS C VIRUS ANTIBODY <0.1 s/co ratio (0.0-0.9)
[2019-01-09] MEDS ORDERED: SUCCINYLCHOLINE CHLORIDE INJ 200 MG/10 ML VIAL ONE (11:31)
[2019-01-09] MEDS: FLUCONAZOLE 100 MG TABLET PO SCH (11:38)
[2019-01-09 14:02] LABS: HEMATOCRIT 30.2 % (36.0-47.0); HEMOGLOBIN 10.2 g/dL (12.0-15.5); MEAN CORPUSCULAR HEMOGLOBIN 31.3 pg (27.0-33.4); MEAN CORPUSCULAR HGB CONC 33.9 g/dL (32.0-36.0); MEAN CORPUSCULAR VOLUME 92 fl (80-97); PLATELET COUNT 174 10^3/uL (150-450); RED BLOOD COUNT 3.27 10^6/uL (3.72-5.28); RED CELL DISTRIBUTION WIDTH 14.1 % (11.5-14.0); WHITE BLOOD COUNT 8.1 10^3/uL (4.0-10.5)
[2019-01-09 14:32] LABS: ALANINE AMINOTRANSFERASE 345 U/L (9-52); ALBUMIN 2.9 g/dL (3.5-5.0); ALKALINE PHOSPHATASE 98 U/L (38-126); ASPARTATE AMINO TRANSFERASE 349 U/L (14-36); TOTAL PROTEIN 5.7 g/dL (6.3-8.2)
[2019-01-09 14:37] LABS: BILIRUBIN,TOTAL 0.8 mg/dL (0.2-1.3)
[2019-01-09 14:44] LABS: BILIRUBIN,DIRECT 0.4 mg/dL (0.0-0.4)
[2019-01-09] MEDS ORDERED: MIDAZOLAM 2 MG/2 ML INJ ONE (16:38)
[2019-01-09] MEDS ORDERED: FENTANYL CITRATE INJ/PF 100 MCG/2 ML AMPUL ONE (16:38)
[2019-01-09] MEDS ORDERED: DEXAMETHASONE SOD PHOSPHATE INJ 4 MG/1 ML VIAL ONE (16:39)
[2019-01-09] MEDS ORDERED: ONDANSETRON HCL INJ/PF 4 MG/2 ML SDV ONE (16:39)
[2019-01-09] MEDS ORDERED: PROPOFOL INJ 200 MG/20 ML VIAL IV ONE (16:39)
[2019-01-09] MEDS ORDERED: MEPERIDINE HCL/PF INJ 25 MG/1 ML DISP.SYRIN IV PRN (16:51)
[2019-01-09] MEDS ORDERED: PROMETHAZINE HCL INJ 25 MG/1 ML VIAL IV PRN ×2 (16:51)
[2019-01-09] MEDS ORDERED: ONDANSETRON HCL INJ/PF 4 MG/2 ML SDV IV PRN (16:51)
[2019-01-09] MEDS ORDERED: DIPHENHYDRAMINE HCL 50 MG/ML VIAL IV PRN (16:51)
[2019-01-09] MEDS ORDERED: FENTANYL CITRATE INJ/PF 100 MCG/2 ML AMPUL IV PRN ×3 (16:51)
--- NOTE | 2019-01-09 17:47 | Operative Report ---
Operative Report DATE OF SURGERY: 01/09/19 Operative Report: Pre-op diagnosis: Abdominal pain, dilated bile duct and abnormal LFTs Post-op diagnosis: 1. Mildly dilated common bile duct 2. Common bile duct sludge Surgery: ERCP with sphincterotomy and balloon sludge extraction Medications: As per anesthesia Tissue removed: None Procedure: After informed consent obtained from patient, the throat was sprayed with Hurricane and conscious sedation was achieved. The ERCP endoscope was then inserted into the esophagus blindly and advanced into the stomach. The duodenum was entered and the ampulla was identified. Using the triple-lumen sphincterotomy catheter the common bile duct was freely cannulated. A chol angiogram was obtained which showed possible filling defect in the distal common bile duct. The common bile duct and intrahepatic ducts did not appear dilated. A good sized sphincterotomy was then performed using the endocut mode. The catheter was removed over the guidewire before a 9-12 mm balloon catheter was inserted. The balloon was inflated to 12 mm in the proximal common bile duct and pulled down the duct. Some sludge was extracted. The duct was swept one more time. A balloon occlusion cholangiogram was normal. The pancreatic duct was intentionally not cannulated. Patient tolerated procedure well. Findings Common bile duct: Mildly dilated with good filling of the cystic duct and the gallbladder Intrahepatic ducts: Normal Pancreatic duct: Normal Plan: Follow-up LFTs OPERATION: . INTRAOPERATIVE FINDINGS: mild esophageal candidiasis
[2019-01-09] MEDS: FENTANYL CITRATE INJ/PF 100 MCG/2 ML AMPUL ONE ×2 (18:05→18:10)
--- NOTE | 2019-01-09 19:22 | PDOC PROGRESS REPORT ---
Subjective Progress Note for:: 01/09/19 Subjective:: Patient was seen by the bedside, she had ERCP done today, sludge was taken of the common bile duct Reason For Visit: ABD PAIN Physical Exam Vital Signs: Temp Pulse Resp BP Pulse Ox 98.5 F 88 16 127/87 H 100 01/09/19 18:58 01/09/19 18:58 01/09/19 18:58 01/09/19 18:58 01/09/19 18:58 Intake & Output 01/08/19 01/09/19 01/10/19 06:59 06:59 06:59 Intake Total 3180 2310 1158 Output Total 1300 1500 500 Balance 1880 810 658 Weight 89.6 kg 90.2 kg General appearance: PRESENT: no acute distress Eye exam: PRESENT: PERRLA Respiratory exam: PRESENT: clear to auscultation rodolfo Cardiovascular exam: PRESENT: +S1, +S2 GI/Abdominal exam: PRESENT: soft Neurological exam: PRESENT: alert Results Laboratory Results: 01/09/19 13:34 01/07/19 04:33 01/09/19 01/09/19 13:34 13:34 WBC 8.1 RBC 3.27 L Hgb 10.2 L Hct 30.2 L MCV 92 MCH 31.3 MCHC 33.9 RDW 14.1 H Plt Count 174 Total Bilirubin 0.8 AST 349 H ALT 345 H Alkaline Phosphatase 98 Total Protein 5.7 L Albumin 2.9 L Impressions: Abdomen MRI 01/04/19 00:00 IMPRESSION: Re- demonstration of a hydropic gallbladder with dilated cystic duct which tapers to normal at the level of the ampulla without obstructing intraluminal lesion or external mass-effect. Chest X-Ray 01/04/19 00:00 IMPRESSION: NO ACUTE RADIOGRAPHIC FINDING IN THE CHEST. Hepatobiliary Scan Nuclear Medicine 01/08/19 13:00 IMPRESSION: NORMAL STUDY WITHOUT CYSTIC OR COMMON DUCT OBSTRUCTION. NORMAL GALLBLADDER EJECTION FRACTION. NO EVIDENCE FOR BILIARY DYSKINESIS. Assessment & Plan - Diagnosis (1) Common bile duct dilatation Is this a current diagnosis for this admission?: Yes Plan: She continues to have abdominal pain (2) Elevated liver enzymes Is this a current diagnosis for this admission?: Yes (3) Epigastric pain Is this a current diagnosis for this admission?: Yes
[2019-01-10] MEDS: TOPIRAMATE 100 MG TABLET PO SCH ×3 (05:25→22:20)
[2019-01-10] MEDS: CYCLOBENZAPRINE HCL 10 MG TABLET PO SCH ×3 (05:25→22:20)
[2019-01-10] MEDS: GABAPENTIN 400 MG CAPSULE PO SCH ×3 (05:25→22:20)
[2019-01-10 06:27] LABS: HEMATOCRIT 31.7 % (36.0-47.0); HEMOGLOBIN 10.7 g/dL (12.0-15.5); MEAN CORPUSCULAR HEMOGLOBIN 31.3 pg (27.0-33.4); MEAN CORPUSCULAR HGB CONC 33.7 g/dL (32.0-36.0); MEAN CORPUSCULAR VOLUME 93 fl (80-97); PLATELET COUNT 209 10^3/uL (150-450); RED BLOOD COUNT 3.41 10^6/uL (3.72-5.28); RED CELL DISTRIBUTION WIDTH 14.5 % (11.5-14.0); WHITE BLOOD COUNT 8.4 10^3/uL (4.0-10.5)
[2019-01-10 06:43] LABS: ALANINE AMINOTRANSFERASE 399 U/L (9-52); ALBUMIN 3.3 g/dL (3.5-5.0); ALKALINE PHOSPHATASE 93 U/L (38-126); ASPARTATE AMINO TRANSFERASE 375 U/L (14-36); BILIRUBIN,DIRECT 0.5 mg/dL (0.0-0.4); BILIRUBIN,TOTAL 0.7 mg/dL (0.2-1.3); TOTAL PROTEIN 6.3 g/dL (6.3-8.2)
[2019-01-10] MEDS: NORMAL SALINE 1000 ML 1,000 ML IV PRN ×2 (08:51→22:23)
[2019-01-10] MEDS: FLUCONAZOLE 100 MG TABLET PO SCH (08:59)
[2019-01-10] MEDS ORDERED: PROPOFOL INJ 200 MG/20 ML VIAL IV ONE (11:09)
[2019-01-10] MEDS ORDERED: FENTANYL CITRATE INJ/PF 250 MCG/5 ML AMPULE ONE (11:09)
[2019-01-10] MEDS ORDERED: LIDOCAINE 2% INJ-PF (100 MG/5 ML) SYRINGE ONE (11:09)
[2019-01-10] MEDS ORDERED: MIDAZOLAM 2 MG/2 ML INJ ONE (11:09)
[2019-01-10] MEDS ORDERED: BUPIVACAINE HCL 0.25 % INJ/PF (2.5 MG/1 ML) 30 ML VIAL ONE (11:13)
[2019-01-10] MEDS ORDERED: CEFAZOLIN INJ 1 GM VIAL ONE (11:16)
--- NOTE | 2019-01-10 11:18 | PDOC PROGRESS REPORT ---
Subjective Progress Note for:: 01/10/19 Subjective:: This is a 63-year-old female status post ERCP for right upper quadrant pain and a dilated common bile duct. She was found to have a large amount of sludge within the common bile duct that was extracted. The patient reports she feels somewhat better today. She denies nausea, vomiting, fevers, chills, chest pain, shortness of breath, dizziness, orthostasis, blurry vision. She does still experience some abdominal pain. Reason For Visit: ABD PAIN Physical Exam Vital Signs: Temp Pulse Resp BP Pulse Ox 97.3 F 88 18 134/93 H 99 01/10/19 09:45 01/10/19 09:45 01/10/19 09:45 01/10/19 09:45 01/10/19 09:45 Intake & Output 01/09/19 01/10/19 01/11/19 06:59 06:59 06:59 Intake Total 2610 4806 1000 Output Total 1500 950 Balance 1110 3856 1000 Weight 90.2 kg 90.2 kg General appearance: PRESENT: no acute distress, cooperative Head exam: PRESENT: atraumatic, normocephalic Eye exam: PRESENT: EOMI, PERRLA. ABSENT: scleral icterus Mouth exam: ABSENT: moist, neck supple Neck exam: ABSENT: meningismus, tenderness, thyromegaly, tracheal deviation Cardiovascular exam: PRESENT: RRR Pulses: PRESENT: normal radial pulses Vascular exam: PRESENT: normal capillary refill. ABSENT: pallor GI/Abdominal exam: PRESENT: soft. ABSENT: distended, tenderness Extremities exam: ABSENT: clubbing Musculoskeletal exam: ABSENT: deformity Neurological exam: PRESENT: alert, awake, oriented to person, oriented to place, oriented to time, oriented to situation, CN II-XII grossly intact. ABSENT: motor sensory deficit Psychiatric exam: ABSENT: agitated, anxious, depressed Focused psych exam: ABSENT: delusional Skin exam: ABSENT: cyanosis, erythema, jaundice Results Laboratory Results: 01/10/19 05:57 01/07/19 04:33 01/09/19 01/09/19 01/10/19 13:34 13:34 05:57 WBC 8.1 8.4 RBC 3.27 L 3.41 L Hgb 10.2 L 10.7 L Hct 30.2 L 31.7 L MCV 92 93 MCH 31.3 31.3 MCHC 33.9 33.7 RDW 14.1 H 14.5 H Plt Count 174 209 Total Bilirubin 0.8 AST 349 H ALT 345 H Alkaline Phosphatase 98 Total Protein 5.7 L Albumin 2.9 L 01/10/19 05:57 WBC RBC Hgb Hct MCV MCH MCHC RDW Plt Count Total Bilirubin 0.7 AST 375 H ALT 399 H Alkaline Phosphatase 93 Total Protein 6.3 Albumin 3.3 L Impressions: Abdomen MRI 01/04/19 00:00 IMPRESSION: Re- demonstration of a hydropic gallbladder with dilated cystic duct which tapers to normal at the level of the ampulla without obstructing intraluminal lesion or external mass-effect. Chest X-Ray 01/04/19 00:00 IMPRESSION: NO ACUTE RADIOGRAPHIC FINDING IN THE CHEST. Hepatobiliary Scan Nuclear Medicine 01/08/19 13:00 IMPRESSION: NORMAL STUDY WITHOUT CYSTIC OR COMMON DUCT OBSTRUCTION. NORMAL GALLBLADDER EJECTION FRACTION. NO EVIDENCE FOR BILIARY DYSKINESIS. Assessment & Plan - Diagnosis (1) Choledocholithiasis Is this a current diagnosis for this admission?: Yes - Plan Summary Plan Summary: This is a 63-year-old female with right upper quadrant pain, a dilated common bile duct, and a large amount of sludge found within the common bile duct on ERCP. I have recommended that the patient undergo laparoscopic cholecystectomy to prevent similar occurrences in the future. The patient has agreed to this. Risks/benefits discussed, informed consent obtained, and all questions answered.
[2019-01-10] MEDS ORDERED: DIPHENHYDRAMINE HCL 50 MG/ML VIAL ONE (11:30)
[2019-01-10] MEDS ORDERED: MEPERIDINE HCL/PF INJ 25 MG/1 ML DISP.SYRIN IV PRN (11:55)
[2019-01-10] MEDS ORDERED: FENTANYL CITRATE INJ/PF 100 MCG/2 ML AMPUL IV PRN ×3 (11:55)
[2019-01-10] MEDS ORDERED: DIPHENHYDRAMINE HCL 50 MG/ML VIAL IV PRN (11:55)
[2019-01-10] MEDS ORDERED: PROMETHAZINE HCL INJ 25 MG/1 ML VIAL IV PRN ×2 (11:55)
[2019-01-10] MEDS ORDERED: HYDROCODONE/ACETAMINOPHEN 10-325 MG TABLET PO PRN (13:48)
--- NOTE | 2019-01-10 15:05 | RADIOLOGY REPORT (SQ) ---
EXAM DESCRIPTION: ENDO CATH/BILIARY DUCT; NO CHG FLUORO COMPLETED DATE/TIME: 01/09/2019 5:50 pm REASON FOR STUDY: ERCP COMPARISON: Hepatobiliary scan 01/08/2019, 01/05/2019 MRCP 01/04/2019 Abdominal ultrasound 01/04/2019 FLUOROSCOPY TIME: 3 minutes 7 digital fluoroscopic images saved to PACS. TECHNIQUE: Intra-operative images acquired during surgical procedure to evaluate progress. NUMBER OF IMAGES: 7 digital fluoroscopic images LIMITATIONS: None. FINDINGS: Imaging from ERCP demonstrate contrast injected into the pancreatic duct, which is normal caliber. No gross filling defects in the field of view. Contrast was injected into the common bile duct, common bile duct was swept with a balloon tipped cat heter. There was reflux of contrast into a patent cystic duct, partially filling the gallbladder. Please see the operative report for further details IMPRESSION: ERCP imaging as above COMMENT: Quality ID 145: Final reports for procedures using fluoroscopy that document radiation exp osure indices, or exposure time and number of fluorographic images (if radiation exposure indices are not available) Please consult full operative report of the attending physician for description of the procedure. TECHNICAL DOCUMENTATION: JOB ID: [id number] [employer]- All Rights Reserved Reading location - IP/workstation name: [email or web address]
--- NOTE | 2019-01-10 15:05 | RADIOLOGY REPORT (SQ) ---
EXAM DESCRIPTION: ENDO CATH/BILIARY DUCT; NO CHG FLUORO COMPLETED DATE/TIME: 01/09/2019 5:50 pm REASON FOR STUDY: ERCP COMPARISON: Hepatobiliary scan 01/08/2019, 01/05/2019 MRCP 01/04/2019 Abdominal ultrasound 01/04/2019 FLUOROSCOPY TIME: 3 minutes 7 digital fluoroscopic images saved to PACS. TECHNIQUE: Intra-operative images acquired during surgical procedure to evaluate progress. NUMBER OF IMAGES: 7 digital fluoroscopic images LIMITATIONS: None. FINDINGS: Imaging from ERCP demonstrate contrast injected into the pancreatic duct, which is normal caliber. No gross filling defects in the field of view. Contrast was injected into the common bile duct, common bile duct was swept with a balloon tipped cat heter. There was reflux of contrast into a patent cystic duct, partially filling the gallbladder. Please see the operative report for further details IMPRESSION: ERCP imaging as above COMMENT: Quality ID [id number]: Final reports for procedures using fluoroscopy that document radiation exp osure indices, or exposure time and number of fluorographic images (if radiation exposure indices are not available) Please consult full operative report of the attending physician for description of the procedure. TECHNICAL DOCUMENTATION: JOB ID: [id number] [employer]- All Rights Reserved Reading location - IP/workstation name: [email or web address]
--- NOTE | 2019-01-10 17:23 | PDOC PROGRESS REPORT ---
Subjective Progress Note for:: 01/10/19 Subjective:: Patient underwent laparoscopic cholecystectomy today she was seen by the bedside, hopefully discharge home tomorrow Reason For Visit: ABD PAIN Physical Exam Vital Signs: Temp Pulse Resp BP Pulse Ox 97.8 F 84 16 143/77 H 97 01/10/19 13:25 01/10/19 13:25 01/10/19 13:25 01/10/19 13:25 01/10/19 13:25 Intake & Output 01/09/19 01/10/19 01/11/19 06:59 06:59 06:59 Intake Total 2610 4806 2300 Output Total 1500 950 10 Balance 1110 3856 2290 Weight 90.2 kg 90.2 kg General appearance: PRESENT: no acute distress Eye exam: PRESENT: PERRLA Respiratory exam: PRESENT: clear to auscultation rodolfo Cardiovascular exam: PRESENT: +S1, +S2 GI/Abdominal exam: PRESENT: soft, tenderness Neurological exam: PRESENT: alert, CN II-XII grossly intact Results Laboratory Results: 01/10/19 05:57 01/07/19 04:33 01/10/19 01/10/19 05:57 05:57 WBC 8.4 RBC 3.41 L Hgb 10.7 L Hct 31.7 L MCV 93 MCH 31.3 MCHC 33.7 RDW 14.5 H Plt Count 209 Total Bilirubin 0.7 AST 375 H ALT 399 H Alkaline Phosphatase 93 Total Protein 6.3 Albumin 3.3 L Impressions: Abdomen MRI 01/04/19 00:00 IMPRESSION: Re- demonstration of a hydropic gallbladder with dilated cystic duct which tapers to normal at the level of the ampulla without obstructing intraluminal lesion or external mass-effect. Chest X-Ray 01/04/19 00:00 IMPRESSION: NO ACUTE RADIOGRAPHIC FINDING IN THE CHEST. Hepatobiliary Scan Nuclear Medicine 01/08/19 13:00 IMPRESSION: NORMAL STUDY WITHOUT CYSTIC OR COMMON DUCT OBSTRUCTION. NORMAL GALLBLADDER EJECTION FRACTION. NO EVIDENCE FOR BILIARY DYSKINESIS. Catheter Placement 01/09/19 00:00 IMPRESSION: ERCP imaging as above Fluoroscopy 01/09/19 00:00 IMPRESSION: ERCP imaging as above Assessment & Plan - Diagnosis (1) Choledocholithiasis Is this a current diagnosis for this admission?: Yes Plan: Status post cholecystectomy (2) Common bile duct dilatation Is this a current diagnosis for this admission?: Yes (3) Elevated liver enzymes Is this a current diagnosis for this admission?: Yes (4) Epigastric pain Is this a current diagnosis for this admission?: Yes
[2019-01-10] MEDS ORDERED: SUCCINYLCHOLINE CHLORIDE INJ 200 MG/10 ML VIAL ONE (17:30)
[2019-01-10] MEDS ORDERED: ONDANSETRON HCL INJ/PF 4 MG/2 ML SDV ONE (17:30)
[2019-01-10] MEDS ORDERED: KETOROLAC TROMETHAMINE 60 MG/2 ML SDV ONE (17:30)
[2019-01-10] MEDS ORDERED: ROCURONIUM BROMIDE INJ 50 MG/5 ML VIAL IV ONE (17:30)
[2019-01-10] MEDS ORDERED: NEOSTIGMINE METHYLSULFATE 10 MG/10 ML VIAL ONE (17:30)
[2019-01-10] MEDS ORDERED: GLYCOPYRROLATE 1 MG/5 ML VIAL ONE (17:30)
--- NOTE | 2019-01-10 19:54 | Operative Report ---
Nonrecallable Operative Report DATE OF SURGERY: 01/10/19 PREOPERATIVE DIAGNOSIS: Choledocholithiasis POSTOPERATIVE DIAGNOSIS: 1. Choledocholithiasis. 2. Cholecystitis OPERATION: Laparoscopic cholecystectomy SURGEON: RIGOBERTO RODAS ANESTHESIA: GA TISSUE REMOVED OR ALTERED: Gallbladder COMPLICATIONS: None apparent ESTIMATED BLOOD LOSS: Minimal PROCEDURE: Drains/implants: None. Procedure in detail: After informed consent was obtained, the patient was brought into the operating room and laid in the supine position. The area of the abdomen was prepped and draped in a normal sterile fashion. A curvilinear infraumbilical incision was created within the bounds of a previous scar. The dissection was carried through the subcutaneous tissues using sharp and blunt means. The linea alba fascia was incised sharply, the abdomen was entered sharply. The balloon trocar was inserted, and pneumoperitoneum was achieved. A subxiphoid 5 mm port was placed under direct laparoscopic visualization. 2 more 5 mm ports were placed in the right upper quadrant in similar fashion. Atraumatic graspers were placed through the 5 mm ports. The gallbladder was retracted cephalad and laterally. There was a dense inflammatory reaction in and around the gallbladder that appeared acute. This is consistent with cholecystitis. The dissection was begun at the triangle of Calot. The cystic duct and cystic artery were fully visualized and skeletonized, seeing the liver through the triangle. Once the critical view of safety was obtained, the cystic duct and cystic artery were clipped and cut with laparoscopic instruments. The gallbladder was then removed from the liver using Bovie electrocautery. The gallbladder was placed into an Endo Catch bag and pulled out of the umbilicus. The camera was reinserted. The hilum was inspected. It was found to be free of any leakage of blood or bile. Once this was confirmed, the 5 mm trochars were removed under direct laparoscopic visualization. The infraumbilical trocar was removed, and pneumoperitoneum was relieved. The infraumbilical fascia was closed using 0 Vicryl suture in [id number] fashion. The overlying skin was closed using 4-0 Vicryl Rapide suture in subcuticular fashion. All sponge, instrument, and needle counts were correct x2. Condition: Stable.
[2019-01-11] MEDS: TOPIRAMATE 100 MG TABLET PO SCH (06:31)
[2019-01-11] MEDS: GABAPENTIN 400 MG CAPSULE PO SCH (06:31)
[2019-01-11] MEDS: CYCLOBENZAPRINE HCL 10 MG TABLET PO SCH (06:31)
--- NOTE | 2019-01-11 07:04 | PDOC PROGRESS REPORT ---
Subjective Progress Note for:: 01/11/19 Reason For Visit: ABD PAIN Physical Exam Vital Signs: Temp Pulse Resp BP Pulse Ox 100.3 F 85 18 146/74 H 100 01/11/19 00:00 01/11/19 00:00 01/11/19 00:00 01/11/19 00:00 01/11/19 00:00 Intake & Output 01/10/19 01/11/19 01/12/19 06:59 06:59 06:59 Intake Total 4806 4304 Output Total 950 1210 Balance 3856 3094 Weight 90.2 kg Results Laboratory Results: 01/10/19 05:57 01/07/19 04:33 Impressions: Abdomen MRI 01/04/19 00:00 IMPRESSION: Re- demonstration of a hydropic gallbladder with dilated cystic duct which tapers to normal at the level of the ampulla without obstructing intraluminal lesion or external mass-effect. Chest X-Ray 01/04/19 00:00 IMPRESSION: NO ACUTE RADIOGRAPHIC FINDING IN THE CHEST. Hepatobiliary Scan Nuclear Medicine 01/08/19 13:00 IMPRESSION: NORMAL STUDY WITHOUT CYSTIC OR COMMON DUCT OBSTRUCTION. NORMAL GALLBLADDER EJECTION FRACTION. NO EVIDENCE FOR BILIARY DYSKINESIS. Catheter Placement 01/09/19 00:00 IMPRESSION: ERCP imaging as above Fluoroscopy 01/09/19 00:00 IMPRESSION: ERCP imaging as above Assessment & Plan - Diagnosis (1) Choledocholithiasis Is this a current diagnosis for this admission?: Yes - Plan Summary Plan Summary: 63-year-old female status post laparoscopic cholecystectomy. She is doing well. Her pain is minimal. She is tolerating a diet. She is okay for discharge from surgical standpoint. Will sign off. Have her follow-up at [facility] in 1 week. [employer] with any questions.
[2019-01-11] MEDS: FLUCONAZOLE 100 MG TABLET PO SCH (10:51)
--- NOTE | 2019-01-11 11:28 | PDOC DISCHARGE SUMMARY ---
General - Admit/Disc Date/PCP Admission Date/Primary Care Provider: 01/06/19 15:52 ENMA HERNDON MD Discharge Date: 01/11/19 - Discharge Diagnosis (1) Acute cholecystitis Is this a current diagnosis for this admission?: Yes (2) Carolyn esophagitis Is this a current diagnosis for this admission?: Yes (3) Choledocholithiasis Is this a current diagnosis for this admission?: Yes (4) Common bile duct dilatation Is this a current diagnosis for this admission?: Yes (5) Elevated liver enzymes Is this a current diagnosis for this admission?: Yes (6) Epigastric pain Is this a current diagnosis for this admission?: Yes - Additional Information Resuscitation Status: Full Code Prescriptions: Fluconazole [Diflucan 100 mg Tablet] 200 mg PO DAILY #5 tablet Home Medications: Cyanocobalamin (Vitamin B-12) [Vitamin B-12 Inj 1000 Mcg/1 ml Vial] 1,000 mcg IM FR@1000 01/04/19 Cyclobenzaprine HCl [Flexeril 10 mg Tablet] 10 mg PO TID 01/04/19 Gabapentin [Neurontin] 800 mg PO Q8 01/04/19 Topiramate [Topamax] 200 mg PO Q8 01/04/19 Fluconazole [Diflucan 100 mg Tablet] 200 mg PO DAILY #5 tablet 01/11/19 History of Present Illness History of Present Illness: CLAUDIA ALEXANDER is a 63 year old female,She came to the office today for evaluation of epigastric pain, a stat ultrasound of the upper abdomen was done, demonstrated distended gallbladder, distended common bile duct without intrahepatic Biliary ductal dilatation ,distal ductal stone or stricture was s uspected, MRCP was recommended and obtained , MRCP demonstrated distended gallbladder dilated common bile duct that tapers to normal without intraluminal lesion or extraluminal lesion.She is very symptomatic, the liver enzymes are elevated Hospital Course Hospital Course: Patient was admitted for the management of dilated gallbladder, common bile duct with associated epigastric pain. The initial ultrasound of the upper abdomen revealed dilated gallbladder with common bile duct, there was no stone that was found in the biliary system. Subsequent MRCP confirmed dilated common bile ducts, there was no stone identified there was concern she may have ampulla disease. She also had a HIDA scan with [facility] again this was negative for any acute pathology, she underwent ERCP with Dr. Morales was found to have a lot of sludge in the common bile duct, this was extracted, she also had sphincterectomy. She had laparoscopic cholecystectomy done yesterday, she was found to have acute cholecystitis Physical Exam Vital Signs: Temp Pulse Resp BP Pulse Ox 98.1 F 85 20 107/62 99 01/11/19 07:37 01/11/19 07:37 01/11/19 07:37 01/11/19 07:37 01/11/19 07:37 Intake & Output 01/10/19 01/11/19 01/12/19 06:59 06:59 06:59 Intake Total 4806 4304 Output Total 950 1210 Balance 3856 3094 Weight 90.2 kg General appearance: PRESENT: no acute distress Eye exam: PRESENT: PERRLA Respiratory exam: PRESENT: clear to auscultation rodolfo Cardiovascular exam: PRESENT: +S1, +S2 GI/Abdominal exam: PRESENT: soft Neurological exam: PRESENT: alert Results Laboratory Results: 01/10/19 05:57 01/07/19 04:33 Impressions: Abdomen MRI 01/04/19 00:00 IMPRESSION: Re- demonstration of a hydropic gallbladder with dilated cystic duct which tapers to normal at the level of the ampulla without obstructing intraluminal lesion or external mass-effect. Chest X-Ray 01/04/19 00:00 IMPRESSION: NO ACUTE RADIOGRAPHIC FINDING IN THE CHEST. Hepatobiliary Scan Nuclear Medicine 01/08/19 13:00 IMPRESSION: NORMAL STUDY WITHOUT CYSTIC OR COMMON DUCT OBSTRUCTION. NORMAL GALLBLADDER EJECTION FRACTION. NO EVIDENCE FOR BILIARY DYSKINESIS. Catheter Placement 01/09/19 00:00 IMPRESSION: ERCP imaging as above Fluoroscopy 01/09/19 00:00 IMPRESSION: ERCP imaging as above Qualifiers - * PATIENT BEING DISCHARGED WITH ANY OF THE FOLLOWING DIAGNOSIS: No VTE patient discharged on overlapping Therapy?: No Stroke Pt being discharged on Anti-thrombolytic therapy?: No Reason(s) for not prescribing Anti-thrombolytic therapy:: Not indicated Stroke Pt being discharged on Anti-coagulation therapy?: No Reason(s) for not prescribing Anti-coagulation therapy:: Not indicated Stroke Pt being discharged on Statins?: No Reason(s) for not prescribing Statins therapy:: Not indicated IN Pt being discharged on Aspirin therapy?: No Reason(s) for not prescribing Aspirin therapy:: Not indicated IN Pt being discharged on Statins?: No Reason(s) for not prescribing Statin therapy:: Not indicated IN Pt discharged ACEI/ARBS?: No Reason(s) for not prescribing ACEI/ARBS:: Not indicated Acute Heart Failure - Is this a Heart Failure Patient?: No 3. Anticoagulant therapy for permanect/persistent/paraoxysmal Afib or Aflutter: N/A
[2019-01-11 12:13] VITALS: BP 126/73
[2019-01-13 08:52] LABS: ACTIN (SMOOTH MUSCLE) ANTIBODY 7 Units (0-19)
[2019-01-13 19:09] LABS: MITOCHONDRIAL (M2) ANTIBODY <20.0 Units (0.0-20.0)
== END 2019-01-11 14:50 | disposition home or self-care (01) | DRG 418 ==
LOC: INTOOBSV 16:13 → 4N 16:13 → OBSVTOIN 01-06 15:52
PROVIDERS: ADMIT Internal Medicine; ATTEND Internal Medicine
PROC: 0DJ08ZZ Inspection of Upper Intestinal Tract, Via Natural or Artificial Opening Endoscopic (ICD-10-PCS; 2019-01-07)
PROC: 0F798ZZ Dilation of Common Bile Duct, Via Natural or Artificial Opening Endoscopic (ICD-10-PCS; 2019-01-09 16:30)
PROC: 0FT44ZZ Resection of Gallbladder, Percutaneous Endoscopic Approach (ICD-10-PCS; principal; 2019-01-10 11:00)
DX: K80.63 Calculus of gallbladder and bile duct with acute cholecystitis with obstruction (principal); B37.81 Candidal esophagitis; I10 Essential (primary) hypertension; K21.9 Gastro-esophageal reflux disease without esophagitis; Z79.899 Other long term (current) drug therapy; Z88.6 Allergy status to analgesic agent; Z88.2 Allergy status to sulfonamides
CPT/HCPCS: 36415; 43235; 71045; 732; 74181; 74328; 76705; 78226; 78227; 80048; 80053; 80074; 80076; 81001; 82962; 83690; 85025; 85027; 86038; 86235; 86256; 88304; 93005; 93010; 93976; A9537; G0378; G0379; J0171; J0330; J0690; J1100; J1170; J1200; J1610; J1885; J2001; J2250; J2310; J2405; J2704; J2710; J2805; J3010; J3420; J3490; J7030; Q9969; S0164

== ENCOUNTER → 2019-01-04 | Outpatient (CLI) | payer MEDICARE, MEDICAID ==
--- NOTE | 2019-01-04 14:45 | RADIOLOGY REPORT (SQ) ---
EXAM DESCRIPTION: U/S ABDOMEN LTD W/DOPPLER COMPLETED DATE/TIME: 01/04/2019 1:53 pm REASON FOR STUDY: R10.13 EPIGASTRIC PAIN R10.13 EPIGASTRIC PAIN COMPARISON: LUMBAR SPINE MR 09/19/2017 TECHNIQUE: Dynamic and static grayscale images acquired of the abdomen and recorded on PACS. Emmao hue selected color Doppler and spectral images recorded. LIMITATIONS: None. FINDINGS: PANCREAS: Midline pancreas unremarkable. LIVER: No masses. Echotexture normal. LIVER VASCULATURE: Normal directional flow of the main portal vein and hepatic veins. GALLBLADDER: Gallbladder is distended. No stones, wall thickening or pericholecystic fluid. ULTRASOUND-DETECTED MERA'S SIGN: Negative. INTRAHEPATIC DUCTS AND COMMON DUCT: Common bile duct is dilated, 13 mm in diameter at the mark hepat is. Distal most common duct at the pancreatic head is incompletely visualized, distal ductal stone o r stricture could be present. Dr. Santana notified of the findings, 1430 hours 01/04/2019 INFERIOR VENA CAVA: Normal flow. AORTA: No aneurysm. RIGHT KIDNEY: Normal size. Normal echogenicity. No solid or suspicious masses. No hydronephrosis. No calcifications. PERITONEAL AND RIGHT PLEURAL SPACE: No ascites or effusions. OTHER: No other significant findings. IMPRESSION: Distended gallbladder, distended common bile duct without intrahepatic biliary ductal di latation. Distal ductal stone or stricture could be present. TECHNICAL DOCUMENTATION: JOB ID: [id number] [employer]- All Rights Reserved Reading location - IP/workstation name: [email or web address]
== END ==
LOC: RAD 12:22
PROVIDERS: ATTEND Internal Medicine
DX: R10.13 Epigastric pain (principal)
CPT/HCPCS: 76705; 93976

== ENCOUNTER 2019-01-23 15:50 | Observation (INO) | payer MEDICARE, MEDICAID ==
[2019-01-23] MEDS ORDERED: GLUCAGON,HUMAN RECOMB 1 MG INJ SUBCUT PRN (16:55)
[2019-01-23] MEDS ORDERED: DEXTROSE 50%-WATER 25 GM/50 ML DISP.SYRIN IV PRN ×2 (16:55)
[2019-01-23] MEDS ORDERED: DEXTROSE 40% GEL 15 GM TUBE PO PRN ×2 (16:55)
--- NOTE | 2019-01-23 16:55 | PDOC H&P ---
History of Present Illness Admission Date/PCP: 01/23/19 15:50 Patient complains of: Persistent nausea and vomiting. History of Present Illness: CLAUDIA ALEXANDER is a 63 year old female approximately 2 weeks status post ERCP for choledocholithiasis and subsequent laparoscopic cholecystectomy. The patient reports that since she has been home she has not been able to hold down anything, including bread and water. She reports that today she tried to drink julianna gail, but "threw it all up". The patient reports periumbilical abdominal pain. She has experienced some serous drainage at the umbilical incision site. She denies abdominal distention, melena, hematochezia, hematemesis. She reports that she has not had a bowel movement since surgery. She is not taking any stool softeners or laxatives. She denies chest pain, shortness of breath, fevers, chills, headache, dizziness, orthostasis, blurry vision. Past Medical History Cardiac Medical History: Reports: Hypertension Pulmonary Medical History: Reports: Asthma, Bronchitis GI Medical History: Reports: Gastroesophageal Reflux Disease Musculoskeltal Medical History: Reports: Arthritis Traumatic Medical History: Denies: Traumatic Brain Injury Past Surgical History Past Surgical History: Reports: Appendectomy, Cholecystectomy, Hysterectomy, Other - Recent ERCP and cholecystectomy Social History Smoking Status: Never Smoker Frequency of Alcohol Use: None Hx Recreational Drug Use: No Drugs: None Hx Prescription Drug Abuse: No Family History Family History: Reviewed & Not Pertinent Parental Family History Reviewed: Yes Children Family History Reviewed: Yes Sibling(s) Family History Reviewed.: Yes Medication/Allergy Allergies/Adverse Reactions: codeine Allergy (Verified 11/15/18 14:30) morphine Allergy (Verified 11/15/18 14:30) Sulfa (Sulfonamide Antibiotics) Allergy (Verified 11/15/18 14:30) Review of Systems Constitutional: PRESENT: fatigue, weakness. ABSENT: anorexia, chills, fever(s), night sweats Eyes: ABSENT: visual disturbances Ears: ABSENT: hearing changes Nose, Mouth, and Throat: ABSENT: sore throat Cardiovascular: ABSENT: chest pain, dyspnea on exertion Respiratory: ABSENT: cough Gastrointestinal: PRESENT: abdominal pain - periumbilical, nausea, vomiting. ABSENT: hematemesis, hematochezia, melena Genitourinary: ABSENT: dysuria Musculoskeletal: ABSENT: back pain Integumentary: PRESENT: other - drainage at umbilicus. ABSENT: pruritus, rash Neurological: PRESENT: weakness. ABSENT: confusion, convulsions, dizziness Psychiatric: ABSENT: anxiety, depression Endocrine: ABSENT: cold intolerance, heat intolerance Hematologic/Lymphatic: ABSENT: easy bleeding, easy bruising Physical Exam Vital Signs: Temp Pulse Resp BP Pulse Ox 98.2 F 77 134/77 H 100 01/23/19 16:06 01/23/19 16:06 01/23/19 16:06 01/23/19 16:06 General appearance: PRESENT: no acute distress, cooperative Head exam: PRESENT: atraumatic, normocephalic Eye exam: PRESENT: EOMI, PERRLA. ABSENT: scleral icterus Mouth exam: PRESENT: moist, neck supple Neck exam: ABSENT: meningismus, tenderness, thyromegaly, tracheal deviation Respiratory exam: PRESENT: clear to auscultation rodolfo, unlabored. ABSENT: chest wall tenderness, tachypnea, wheezes Cardiovascular exam: PRESENT: RRR Pulses: PRESENT: normal radial pulses Vascular exam: PRESENT: normal capillary refill GI/Abdominal exam: PRESENT: soft, tenderness - periumbilical, other - Periumbilical incision open at the left lateral margin. There is a small amount of serous drainage. There is no foul odor.. ABSENT: distended, firm, guarding, rebound, rigid Rectal exam: PRESENT: deferred Extremities exam: ABSENT: clubbing Musculoskeletal exam: ABSENT: deformity Neurological exam: PRESENT: alert, awake, oriented to person, oriented to place, oriented to time, oriented to situation Psychiatric exam: ABSENT: agitated, anxious, depressed Focused psych exam: ABSENT: delusional Skin exam: ABSENT: cyanosis, erythema, jaundice Assessment & Plan - Diagnosis (1) Nausea & vomiting Qualifiers: Vomiting type: unspecified Vomiting Intractability: intractable Qualified Code(s): R11.2 - Nausea with vomiting, unspecified Is this a current diagnosis for this admission?: Yes - Plan Summary Plan Summary: This is a 63-year-old female approximately 2 weeks status post ERCP and laparoscopic cholecystectomy for choledocolithiasis. She reports that she cannot eat or drink anything. She is feeling weak and dehydrated. The patient has difficulty with movement due to pain and weakness. In light of these complaints, I have recommended she be admitted to the hospital for appropriate work-up. I will order CBC, CMP, and CT scan of the abdomen and pelvis. She does have a small draining seroma at the umbilical incision. There is no sign of purulence or active infection. N.p.o. for now. IV fluids. Further recommendations to be made after her work-up is complete.
[2019-01-23] MEDS ORDERED: PANTOPRAZOLE SODIUM 40 MG VIAL IV ONE (16:56)
[2019-01-23] MEDS ORDERED: ONDANSETRON HCL INJ/PF 4 MG/2 ML SDV ONE (16:59)
[2019-01-23 17:00] LABS: HEMATOCRIT 34.5 % (36.0-47.0); HEMOGLOBIN 11.2 g/dL (12.0-15.5); MEAN CORPUSCULAR HEMOGLOBIN 30.4 pg (27.0-33.4); MEAN CORPUSCULAR HGB CONC 32.5 g/dL (32.0-36.0); MEAN CORPUSCULAR VOLUME 94 fl (80-97); PLATELET COUNT 358 10^3/uL (150-450); RED BLOOD COUNT 3.68 10^6/uL (3.72-5.28); RED CELL DISTRIBUTION WIDTH 16.1 % (11.5-14.0); WHITE BLOOD COUNT 10.1 10^3/uL (4.0-10.5)
[2019-01-23 17:17] LABS: ALANINE AMINOTRANSFERASE 478 U/L (9-52); ALBUMIN 3.6 g/dL (3.5-5.0); ALKALINE PHOSPHATASE 130 U/L (38-126); ANION GAP 11 (5-19); ASPARTATE AMINO TRANSFERASE 544 U/L (14-36); BILIRUBIN,DIRECT 0.5 mg/dL (0.0-0.4); BILIRUBIN,TOTAL 0.8 mg/dL (0.2-1.3); BLOOD UREA NITROGEN 7 mg/dL (7-20); CALCIUM 8.9 mg/dL (8.4-10.2); CARBON DIOXIDE 20 mmol/L (22-30); CHLORIDE 112 mmol/L (98-107); GLUCOSE 71 mg/dL (75-110); POTASSIUM 3.3 mmol/L (3.6-5.0); SODIUM 143.1 mmol/L (137-145); TOTAL PROTEIN 7.3 g/dL (6.3-8.2)
[2019-01-23 17:19] LABS: ABSOLUTE LYMPHOCYTES# (MANUAL) 4.2 10^3/uL (0.5-4.7); ABSOLUTE MONOCYTES # (MANUAL) 1.1 10^3/uL (0.1-1.4); BAND NEUTROPHILS % (MANUAL) 2 % (3-5); BASOPHILS % (MANUAL) 0 % (0-2); EOSINOPHILS % (MANUAL) 3 % (0-6); LYMPHOCYTES % (MANUAL) 41 % (13-45); MONOCYTES % (MANUAL) 11 % (3-13); PLATELET COMMENT ADEQUATE; SEGMENTED NEUTROPHILS % (MAN) 42 % (42-78); TOTAL CELLS COUNTED 100
[2019-01-23 17:20] LABS: ANISOCYTOSIS 1+; BURR CELLS SLIGHT; POIKILOCYTOSIS SLIGHT
[2019-01-23] MEDS: RINGERS SOLUTION,LACTATED 1,000 ML IV PRN (17:24)
[2019-01-23] MEDS: KETOROLAC TROMETHAMINE INJ/PF 30 MG/1 ML SDV IV PRN (17:45)
--- NOTE | 2019-01-23 18:28 | EKG REPORT ---
SEVERITY:- BORDERLINE ECG - SINUS RHYTHM NONSPECIFIC ST-T CHANGES, UNCHANGED FROM LAST EKG : Confirmed by: Jimmy Cabrera MD 23-Jan-2019 18:27:59
--- NOTE | 2019-01-23 20:15 | RADIOLOGY REPORT (SQ) ---
CT ABDOMEN PELVIS WITH IV CONTRAST EXAM DATE: 01/23/2019 12:00 AM CDT HISTORY: Postcholecystectomy with nausea and vomiting. COMPARISON: 01/04/2019 TECHNIQUE: CT scan of the abdomen and pelvis was performed with IV contrast. This exam was performed according to our departmental dose-optimization program, which includes automated exposure control, adjustment of the mA and/or kV according to patient size and/or use of iterative reconstruction technique. FINDINGS: The lung bases are clear without pleural or pericardial effusions. Status post cholecystomy with small amount of mesenteric stranding presumably postsurgical. No abscess or free air in the gallbladder fossa. The liver, spleen, pancreas, adrenal glands, and kidneys are normal. There has been a prior hysterectomy. There has been a prior appendectomy. No small bowel obstruction or acute diverticulitis. Postsurgical changes along the anterior abdominal wall without fluid collection. No acute bony findings. The aorta and IVC are normal. IMPRESSION: Expected post surgical changes of recent cholecystectomy. No fluid collection or abscess is identified.
[2019-01-24] MEDS: KETOROLAC TROMETHAMINE INJ/PF 30 MG/1 ML SDV IV PRN ×4 (00:01→23:35)
[2019-01-24] MEDS: RINGERS SOLUTION,LACTATED 1,000 ML IV PRN ×2 (01:52→09:33)
[2019-01-24] MEDS ORDERED: MAGNESIUM CITRATE 296 ML BOTTLE PO ONE (08:00)
[2019-01-24] MEDS: ONDANSETRON HCL INJ/PF 4 MG/2 ML SDV IV PRN ×3 (08:09→20:21)
[2019-01-24] MEDS: DOCUSATE SODIUM 100 MG CAPSULE PO SCH ×2 (09:34→17:47)
[2019-01-24] MEDS: PANTOPRAZOLE SODIUM 40 MG VIAL IV SCH (09:34)
--- NOTE | 2019-01-24 19:54 | PDOC PROGRESS REPORT ---
Subjective Progress Note for:: 01/24/19 Subjective:: This is a 63-year-old female admitted with nausea and vomiting after cholecystectomy. Her work-up has been negative to date. The patient reports eating regular food today, although she did have a small amount of vomiting. Currently she denies any nausea. She denies chest pain, shortness of breath, fevers, chills, dizziness, orthostasis, sore throat, headache. She does report pain at her umbilical incision site. Reason For Visit: PERSISTANT NAUSEA AND VOMITING AFTER CHOLECYSTECTO Physical Exam Vital Signs: Temp Pulse Resp BP Pulse Ox 98.4 F 65 16 143/76 H 100 01/24/19 15:15 01/24/19 15:15 01/24/19 15:15 01/24/19 15:15 01/24/19 15:15 Intake & Output 01/23/19 01/24/19 01/25/19 06:59 06:59 06:59 Intake Total 1000 1000 Balance 1000 1000 Weight 81.647 kg General appearance: PRESENT: obese Head exam: PRESENT: atraumatic, normocephalic Eye exam: PRESENT: EOMI, PERRLA. ABSENT: scleral icterus Mouth exam: PRESENT: moist, neck supple Neck exam: ABSENT: meningismus, tenderness, thyromegaly, tracheal deviation Respiratory exam: PRESENT: unlabored. ABSENT: accessory muscle use, tachypnea Cardiovascular exam: PRESENT: RRR Pulses: PRESENT: normal radial pulses Vascular exam: PRESENT: normal capillary refill. ABSENT: pallor GI/Abdominal exam: PRESENT: soft, tenderness - Mild periumbilical tenderness, other - Small open area at left lateral portion of the umbilical incision. Small amount of serous drainage. No sign of infection. Rectal exam: PRESENT: deferred Extremities exam: ABSENT: clubbing Musculoskeletal exam: ABSENT: deformity Neurological exam: PRESENT: alert, awake, oriented to person, oriented to place, oriented to time, oriented to situation, CN II-XII grossly intact Psychiatric exam: ABSENT: agitated, anxious, depressed Focused psych exam: ABSENT: delusional Skin exam: ABSENT: cyanosis, erythema, jaundice Results Laboratory Results: 01/23/19 16:25 01/23/19 16:25 Impressions: Abdomen/Pelvis CT 01/23/19 00:00 IMPRESSION: Expected post surgical changes of recent cholecystectomy. No fluid collection or abscess is identified. Assessment & Plan - Diagnosis (1) Nausea & vomiting Qualifiers: Vomiting type: unspecified Vomiting Intractability: intractable Qualified Code(s): R11.2 - Nausea with vomiting, unspecified Is this a current diagnosis for this admission?: Yes - Plan Summary Plan Summary: This is a 63-year-old female with nausea and vomiting. She is status post cholecystectomy. Her CT scan, lab work, and vital signs are all normal. The patient is feeling better and tolerating a diet today. Plan for discharge tomorrow if symptoms remain controlled.
--- NOTE | 2019-01-25 05:11 | PDOC DISCHARGE SUMMARY ---
General - Admit/Disc Date/PCP Admission Date/Primary Care Provider: 01/23/19 15:50 Discharge Date: 01/25/19 - Discharge Diagnosis (1) Nausea & vomiting Is this a current diagnosis for this admission?: Yes - Additional Information Resuscitation Status: Full Code Discharge Diet: As Tolerated Discharge Activity: Balance Activity w/Rest, No Lifting Over 10 Pounds Home Medications: Allopurinol [Zyloprim 300 mg Tablet] 300 mg PO DAILY 01/23/19 Clonazepam [Klonopin] 0.5 mg PO QHS 01/23/19 Cyanocobalamin (Vitamin B-12) [Vitamin B-12 Inj 1000 Mcg/1 ml Vial] 1,000 mcg IM FR@1000 01/23/19 Gabapentin [Neurontin] 800 mg PO Q8 01/23/19 Mirabegron [Myrbetriq] 25 mg PO DAILY 01/23/19 Topiramate [Topamax] 200 mg PO Q8 01/23/19 History of Present Illness History of Present Illness: CLAUDIA ALEXANDER is a 63 year old female approximately 2 weeks status post ERCP for choledocholithiasis and subsequent laparoscopic cholecystectomy. The patient reports that since she has been home she has not been able to hold down anything, including bread and water. She reports that today she tried to drink julianna gail, but "threw it all up". The patient reports periumbilical abdominal pain. She has experienced some serous drainage at the umbilical incision site. She denies abdominal distention, melena, hematochezia, hematemesis. She reports that she has not had a bowel movement since surgery. She is not taking any stool softeners or laxatives. She denies chest pain, shortness of breath, fevers, chills, headache, dizziness, orthostasis, blurry vision. Hospital Course Hospital Course: The patient was admitted to the hospital. A CT scan, and lab work was performed. All of these tests were normal. The patient was started on a diet. She began to tolerate liquids, then solid foods. She did have some nausea, but it was controlled with medications. By 01/25/2019 it was felt that the patient had reached maximal hospital benefit, and was fit for discharge. Physical Exam Vital Signs: Temp Pulse Resp BP Pulse Ox 98.1 F 67 16 137/72 H 99 01/24/19 23:37 01/24/19 23:37 01/24/19 23:37 01/24/19 23:37 01/24/19 23:37 Intake & Output 01/23/19 01/24/19 01/25/19 06:59 06:59 06:59 Intake Total 1000 1000 Balance 1000 1000 Weight 81.647 kg Results Laboratory Results: 01/23/19 16:25 01/23/19 16:25 Impressions: Abdomen/Pelvis CT 01/23/19 00:00 IMPRESSION: Expected post surgical changes of recent cholecystectomy. No fluid collection or abscess is identified. Qualifiers - * PATIENT BEING DISCHARGED WITH ANY OF THE FOLLOWING DIAGNOSIS: No Acute Heart Failure - Is this a Heart Failure Patient?: No Plan Discharge Plan: Discharge home. Diet as tolerated. Activity: Nonstrenuous. Follow-up with [facility] in 2 weeks. Follow-up with Dr. Santana, per his instruction. Follow-up with Dr. Morales, per his instruction. Time Spent: Less than 30 Minutes
[2019-01-25 09:26] VITALS: BP 135/70
[2019-01-25] MEDS: KETOROLAC TROMETHAMINE INJ/PF 30 MG/1 ML SDV IV PRN (09:28)
[2019-01-25] MEDS: PANTOPRAZOLE SODIUM 40 MG VIAL IV SCH (09:29)
[2019-01-25] MEDS: DOCUSATE SODIUM 100 MG CAPSULE PO SCH (09:29)
== END 2019-01-25 10:20 | disposition home or self-care (01) ==
LOC: 2N 15:50 → 2S 01-24 15:45
PROVIDERS: ADMIT Surgery; ATTEND Surgery
DX: R11.2 Nausea with vomiting, unspecified (principal); R10.33 Periumbilical pain; R53.1 Weakness; R53.83 Other fatigue; L76.34 Postprocedural seroma of skin and subcutaneous tissue following other procedure; Y83.8 Other surgical procedures as the cause of abnormal reaction of the patient, or of later complication, without mention of misadventure at the time of the procedure; G89.18 Other acute postprocedural pain; E66.9 Obesity, unspecified; Z79.899 Other long term (current) drug therapy; Z90.49 Acquired absence of other specified parts of digestive tract; Z90.710 Acquired absence of both cervix and uterus; Z87.19 Personal history of other diseases of the digestive system
CPT/HCPCS: 36415; 85025; 80053; 74177; 93005; 93010; G0378 ×3; G0379; J3490; A9270 ×2; J1885 ×3; C9113 ×3; J2405 ×2; J7120 ×2; S0164

== ENCOUNTER → 2020-03-19 | Outpatient (CLI) | payer MEDICARE, MEDICAID ==
--- NOTE | 2020-03-20 10:31 | RADIOLOGY REPORT (SQ) ---
EXAM DESCRIPTION: MRI LUMBAR SPINE WITHOUT IMAGES COMPLETED DATE/TIME: 03/19/2020 8:08 pm REASON FOR STUDY: (M51.36)OTHER INTERVERTEBRAL DISC DEGENERATION, LUMBAR REGION M51.36 OTHER INTERV ERTEBRAL DISC DEGENERATION, LUMBAR REGION M19.079 PRIMARY OSTEOARTHRITIS, UNSPECIFIED ANKLE AND FOOT COMPARISON: 09/19/2017, 10/21/2016 TECHNIQUE: Sagittal and Axial imaging includes T1, T2, STIR and gradient echo sequences. Coronal T2/ HASTE imaging. LIMITATIONS: Motion. FINDINGS: VISUALIZED UPPER ABDOMEN: Limited evaluation. No acute or suspicious findings suggested. SEGMENTATION: No transitional anatomy. The lowest well-developed disc space is labeled L5-S1. ALIGNMENT: Grade 1 spondylolisthesis L3-4. VERTEBRAE: Intact. BONE MARROW: Normal. No marrow replacement or reactive changes. DISC SIGNAL: Desiccation multiple levels. POSTERIOR ELEMENTS: Generally intact. No pars defect evident. HARDWARE: None in the spine. CORD AND CONUS: Normal in size and signal intensity. Conus at the appropriate level. SOFT TISSUES: No aortic aneurysm seen. No bulky retroperitoneal adenopathy or mass. No paraspinal mas s or fluid. L1-L2: No significant spinal stenosis or exit foraminal stenosis. L2-L3: No significant spinal stenosis or exit foraminal stenosis. L3-L4: Moderate -severe spinal stenosis due to disc bulge, facet arthropathy and malalignment. L4-L5: Mild spinal stenosis due to disc bulge and facet arthropathy. L5-S1: Chronic left paracentral and upward disc herniation contacting the transiting S1 nerve root in the canal. LOWER THORACIC: Incompletely imaged. No stenosis seen. SACRUM: Visualized upper sacrum intact. OTHER: No other significant findings. IMPRESSION: Spondylosis, facet arthropathy and malalignment. Moderate -severe spinal stenosis L3- 4 . Chronic disc herniation L5-S1. TECHNICAL DOCUMENTATION: JOB ID: [id number] 2010 [employer]- All Rights Reserved Reading location - IP/workstation name: [email or web address]
--- NOTE | 2020-03-20 12:18 | RADIOLOGY REPORT (SQ) ---
EXAM DESCRIPTION: ANKLE RIGHT COMPLETE IMAGES COMPLETED DATE/TIME: 03/19/2020 7:35 pm REASON FOR STUDY: (M19.079)PRIMARY OSTEOARTHRITIS, UNSPECIFIED ANKLE AND FOOT M51.36 OTHER INTERVER TEBRAL DISC DEGENERATION, LUMBAR REGION M19.079 PRIMARY OSTEOARTHRITIS, UNSPECIFIED ANKLE AND FOOT COMPARISON: 08/06/2017 NUMBER OF VIEWS: Three views. TECHNIQUE: AP, lateral, and oblique radiographic images acquired of the right ankle. LIMITATIONS: None. FINDINGS: MINERALIZATION: Normal. BONES: No acute fracture or dislocation. No worrisome bone lesions. JOINTS: No effusions. SOFT TISSUES: No soft tissue swelling. No foreign body. OTHER: No other significant finding. IMPRESSION: NEGATIVE STUDY OF THE RIGHT ANKLE. NO RADIOGRAPHIC EVIDENCE OF ACUTE INJURY. TECHNICAL DOCUMENTATION: JOB ID: [id number] 2010 [employer]- All Rights Reserved Reading location - IP/workstation name: [email or web address]
== END ==
LOC: RAD 19:17
PROVIDERS: ATTEND Physician Assistant
DX: M51.36 Other intervertebral disc degeneration, lumbar region (principal); M19.079 Primary osteoarthritis, unspecified ankle and foot
CPT/HCPCS: 72148